=== PATIENT | male | born 1985 | race Caucasian/White ===

== ENCOUNTER 2018-05-28 07:05 | Outpatient (CLI) | payer MEDICAID, SELFPAY ==
--- NOTE | 2018-05-28 07:18 | DI.US_ITS ---
SYMPTOMS/DIAGNOSIS: EPIGASTRIC PAIN, SOME SEPARATION OF ABD MM SUPERIOR, ? LESION, ASSES ABD WALL ABDOMEN ULTRASOUND: There are no prior comparison exams. The liver is normal in size and echogenicity. The gallbladder is unremarkable, without evidence of stones or wall thickening. The common bile duct is mildly dilated at 6-7 mm. No common duct stones are seen. The pancreas was not well seen due to overlying bowel gas. The spleen is normal in size. The left kidney is also partially obscured by bowel gas. No ascites is seen. The abdominal wall was also scanned. No abdominal wall hernia, mass or fluid collection is seen. IMPRESSION: Borderline dilatation of the common bile duct. No gallstones or acute cholecystitis is seen. No abnormality of the abdominal wall is demonstrated.
== END 2018-05-28 07:25 ==
PROVIDERS: PCP Internal Medicine; Visit Provider Naturopath
DX: R10.13 Epigastric pain (principal); K83.8 Other specified diseases of biliary tract
CPT/HCPCS: 76700

== ENCOUNTER 2018-06-16 00:41 | Outpatient (CLI) | payer MEDICAID, SELFPAY ==
--- NOTE | 2018-06-16 12:54 | DI.CT_ITS ---
SYMPTOM/DIAGNOSIS: CHRONIC MAXILLARY SINUSITIS, J32.0, DENTIGEROUS CYST OF JAW, K09.[address]: There is opacification of the right frontal sinuses and multiple bilateral ethmoid sinuses. There is mucus retention cysts at the floors of both maxillary sinuses as well as circumferential mucosal thickening. There is mild mucosal thickening in the sphenoid sinuses. No dentigerous cysts are seen. The orbits are unremarkable. The mastoid air cells appear clear. There are no areas of bony destruction or expansion. IMPRESSION: Findings consistent with chronic hale sinusitis.
== END 2018-06-16 01:01 ==
PROVIDERS: PCP Internal Medicine; Visit Provider Otolaryngology Otolaryngology/Facial Plastic Surgery
DX: J32.0 Chronic maxillary sinusitis (principal); K09.0 Developmental odontogenic cysts; J32.4 Chronic pansinusitis
CPT/HCPCS: 70486

== ENCOUNTER 2019-02-04 09:33 | Emergency (ER) | payer MEDICAID, SELFPAY ==
[2019-02-04 09:35] VITALS: BP 132/81; PULSE 77; RESP 16; TEMP 36.7; O2SAT 99
--- NOTE | 2019-02-04 10:25 | ED.GENADUL_ITS ---
Discharge Plan Disposition Patient Disposition: HOME Condition: Good Discharge Details Chief Complaint: Laceration Clinical Impression: Wart Primary Care Provider: Kole Franco ED Provider: Kerri Plaza Home Meds and New Rx's Prescriptions: New mupirocin 2 % ointment 1 applic TP BID Qty: 30 RF: 0 cephalexin [Keflex] 500 mg capsule 500 mg PO QID Qty: 40 RF: 0 No Action dextroamphetamine-amphetamine [Adderall] 5 MG tablet 5 mg PO PRN PRNRF: 0 Discharge Instructions Instructions: Common Wart (ED) Additional Instructions: Wash area with soap and water once or twice daily. Use topical antibiotic ointment. Use oral antibiotic if desired Consider duct tape daily. Follow-up with is project manager for definitive removal. Return for any worsening or concerns sooner if needed Referrals: Ga Kent MD [ CONSULTING PHYSICIAN] - Medical Decision Making Patient with a wart noted on his fingers seeking definitive removal. Wart is been present for approximately 6 months. He is tried to cut it off himself s everal times. Patient has been using Compound W. Patient denies any other concerns or complaints. He does report soreness at the site. Complains of mild redness. No other concerns or complaints. I have referred this patient to local dermatology and encouraged conservative treatments. Did provide antibiotic as patient was concerned slightly with infection. He will consent to having the antibiotic by mouth however will likely only use the topical per his account. HPI General Date/Time Provider Initiated Documentation: 02/04/19 09:36 . HPI Narrative: Patient presents for a wart on his second digit. Patient reports it has been present for approximately 6 months. Patient reports he is quite bothered by it as it causes pain. Patient reports occasional drainage. He has tried to cut this off several times without relief. Patient seeking definitive removal. Related Data Home Medications Medication Instructions Recorded Confirmed dextroamphetamine-amphetamine 5 mg PO PRN PRN 03/26/13 02/04/19 [Adderall] cephalexin [Keflex] 500 mg PO QID #40 cap 02/04/19 mupirocin 1 applic TP BID #30 gm 02/04/19 Previous Rx's Medication Instructions Recorded cephalexin [Keflex] 500 mg PO QID #40 cap 02/04/19 mupirocin 1 applic TP BID #30 gm 02/04/19 Allergies Allergy/AdvReac Type Severity Reaction Status Date / Time No Known Allergies Allergy Unverified 02/04/19 09:40 General Stated Complaint: Laceration GRAY: 4 Review of Systems Review of Systems Narrative: CONSTITUTIONAL: The patient denies fevers, chills. EYES: Denies vision changes, blurry vision, or eye pain. ENT: Denies hearing changes, tinnitus, vertigo, sore throat. CARDIAC: Denies chest pain, SOB. RESPIRATORY: Denies cough, sputum. Denies difficulty breathing. GASTROINTESTINAL: Denies abdominal pain, changes in bowel, vomiting or nausea. GENITOURINARY: Denies dysuria, or frequency of urination. MUSCULOSKELETAL: Denies Joint pain, gait changes. NEUROLOGIC: Denies headaches, Denies focal weakness. Denies numbness. INTEGUMENT: Denies rashes. Wart PSYCHIATRIC: Denies behavior changes. Denies anxiety or depression. ENDOCRINOLOGY: Denies fatigue. PSYCHIATRY: Denies depression, agitation or anxiety ROS Unobtainable: All systems reviewed & are unremarkable except as noted in HPI and below PFSH Social History Smoking/Tobacco Use Status: Current-Occasional Drug use: Daily Substance use type: marijuana Do you feel safe at home: Yes Do you feel safe in your relationship?: Yes Exam Narrative Exam Narrative: CONST: Healthy appearing patient, in no acute distress. Well hydrated. Alert and alert. HENMT: Head nomocephalic, normal to inspection. Atraumatic. Hearing grossly normal. EYES: General normal appearance. Alignment normal. Eyelids normal. Conjunctiva normal. NECK: Normal visual inspection. FROM. Trachea midline. No Midline tenderness. RESP: Normal respiratory effort. Speaking full sentences. No cough. No audible wheezing. No retractions. CARDIO: No JVD. MUSCULOSKELETAL: Normal Gait. FROM of all extremities. SKIN: Normal. Dry. No rashes. Patient with a wart which seems chronic to the second digit laterally. Mild surrounding erythema. No purulence. NEURO: Alert and awake. Speech clear. PSYCH: Normal affect. Cooperative. Course Vital Signs Vital signs: Vital Signs Temperature 36.7 C 02/04/19 09:35 Pulse 77 02/04/19 09:35 Respiratory Rate 16 02/04/19 09:35 Blood Pressure 132/81 02/04/19 09:35 Pulse Oximetry 99 02/04/19 09:35 Temperature 36.7 C 02/04/19 09:35 Temperature Source Skin 02/04/19 09:35 Pulse 77 02/04/19 09:35 Respiratory Rate 16 02/04/19 09:35 Blood Pressure 132/81 02/04/19 09:35 Blood Pressure Position Sitting 02/04/19 09:35 Pulse Oximetry 99 02/04/19 09:35 Oxygen Delivery Method Room Air 02/04/19 09:35 Oxygen Flow Rate 0 02/04/19 09:35 Pain Level 10 02/04/19 09:35
== END 2019-02-04 10:38 | disposition home or self-care (01) ==
LOC: ER 10:33
PROVIDERS: Emergency Provider Physician Assistant; PCP Internal Medicine
DX: B07.8 Other viral warts (principal)
CPT/HCPCS: 99283

== ENCOUNTER 2019-07-30 02:15 | Outpatient (CLI) | payer MEDICAID, SELFPAY ==
--- NOTE | 2019-07-30 | DI.US_ITS ---
TECHNIQUE: Ultrasound abdomen performed using standard protocol. COMPARISON: US ABDOMEN from 05/28/2018 FINDINGS: LIVER: Normal. Hepatopedal flow in the Portal Vein. GALLBLADDER: No evidence of cholelithiasis. No evidence of wall thickening. No pericholecystic fluid identified. KIDNEYS: Kidneys are symmetric in size. No evidence of renal calculi. No evidence of hydronephrosis. No renal mass or cyst identified. BILIARY SYSTEM: Common bile duct measures 3 mm. No intrahepatic biliary ductal dilation. FLETCHER'S SIGN: Negative. PANCREAS: Normal where visualized. SPLEEN: Not enlarged. ABDOMINAL AORTA AND IVC: Visualized portions normal caliber. ASCITES: None seen. IMPRESSION: Normal sonographic appearance of the upper abdomen. DATA REPOSITORY:
== END 2019-07-30 02:35 ==
PROVIDERS: PCP Internal Medicine; Visit Provider Naturopath
DX: R10.11 Right upper quadrant pain (principal)
CPT/HCPCS: 76700

== ENCOUNTER 2022-09-27 07:36 | Emergency (ER) | payer MEDICAID, SELFPAY ==
[2022-09-27 07:40] VITALS: BP 140/82; PULSE 100; RESP 20; TEMP 37.1; O2SAT 99
--- NOTE | 2022-09-27 07:57 | ED.GENADUL_ITS ---
Discharge Plan Disposition Patient Disposition: Home Discharge Details Clinical Impression: Acute flank pain Primary Care Provider: Kole Franco ED Provider: Awais Caban Home Meds and New Rx's Prescriptions: No Action dextroamphetamine-amphetamine [Adderall] 5 MG tablet 5 mg PO PRN PRN mupirocin 2 % ointment 1 applic TP BID Qty: 30 0RF Patient Comments: Pt states not taking Rx Instructions: Pt states not taking cephalexin [Keflex] 500 mg capsule 500 mg PO QID Qty: 40 0RF Patient Comments: Pt states not taking Discharge Instructions Instructions: Flank Pain (ED) Additional Instructions: Your blood work and CAT scan did not reveal any abnormalities. You may take some Tylenol Motrin for the pain. Please return if you have any concerns. Follow-up with your primary care doctor as needed. Medical Decision Making 37-year-old presents to the emergency room with acute right-sided back pain, coccyx pain. States he went to bed feeling fine and woke up with the pain. No dysuria frequency no hematuria. Inspection of the lower back did not reveal any signs consistent with a abscess. No history of IVDA. CT scan of the abdomen pelvis did not reveal any abnormalities. Patient did not provide a urine sample for analysis. Patient walked up to the dictation desk stating that he wanted to be discharged, discussed the results of his CAT scan. HPI General Date/Time Provider Initiated Documentation: 09/27/22 07:56 . HPI Narrative: 37-year-old male presents to the emergency department after waking up with back pain on the right that radiates down to the pelvic area associated with coccyx pain. He states that he is very uncomfortable. States that he had some diarrhea this morning and some trace blood on the paper. He is very uncomfortable. No fever no chills. While in the emergency department he had an episode of diaphoresis. He denies any trauma. He had a normal day yesterday. Related Data Home Medications Medication Instructions Recorded Confirmed dextroamphetamine-amphetamine 5 mg 5 mg PO PRN PRN 03/26/13 09/27/22 tablet (Adderall) cephalexin 500 mg capsule (Keflex) 500 mg PO QID #40 caps 02/04/19 mupirocin 2 % topical ointment 1 applic topical BID #30 grams 02/04/19 Previous Rx's Medication Instructions Recorded cephalexin 500 mg capsule (Keflex) 500 mg PO QID #40 caps 02/04/19 mupirocin 2 % topical ointment 1 applic topical BID #30 grams 02/04/19 Allergies Allergy/AdvReac Type Severity Reaction Status Date / Time No Known Allergies Allergy Unverified 02/04/19 09:40 General Stated Complaint: FlankPain GRAY: 3 Review of Systems Narrative: 10 point review of systems is negative unless otherwise specified in the review of systems PFSH All Active Problems (Updated 09/27/22 @ 08:58 by Awais Caban MD) Acute flank pain (Acute) Allergic fungal sinusitis (Acute 05/17/13) Allergic rhinitis due to other allergen (Acute 03/04/16) Chronic ethmoidal sinusitis (Acute 04/12/13) Chronic frontal sinusitis (Acute 04/12/13) Chronic maxillary sinusitis (Acute 04/12/13) Nasal polyp (Acute 04/12/13) Social History Smoking/Tobacco Use Status: Current-Occasional Smoking risk assessment performed?: Yes Alcohol Intake: current Alcohol Intake frequency: 0-2 drinks per day Alcohol type: beer Drug use: Daily Substance use type: marijuana Do you feel safe at home: Yes Do you feel safe in your relationship?: Yes Exam Narrative Exam Narrative: General: A,A Ox3, Calm, no apparent distress, well developed, pleasant and cooperative Head Size/Shape: normocephalic, atraumatic Eyes Pupils: PERRLA Extraocular Mobility: intact and symmetrical Conjunctiva: non-injected, anicteric, no discharge Ears, Nose, Throat Nares: patent bilaterally Oral Cavity: moist Neck: no masses, no crepitus Lymph Nodes: no cervical lymphadenopathy Respiratory Respiratory Effort: no dyspnea Auscultation: clear to auscultation bilaterally, normal breath sounds, no wheezing, no rales/crackles Cardiovascular Heart Auscultation: regular rate and rhythm, normal S1, normal S2, no murmurs, no rubs, no gallops, Pulse Quality: +2 equal bilaterally, location(s) radial Abdomen Inspection and Palpation: soft, non-tender, non-distended, no hepatosplenomegaly Musculoskeletal System Joints, Bones, and Muscles: no deformities Extremities: warm and well-perfused, no cyanosis, capillary refill <2 seconds Skin Skin Inspection: no rash, no lesions, no bruising Neurological Motor: normal tone, normal strength, moving all extremities equally Reflexes: deep tendon reflexes 2+ bilaterally, no clonus Psychiatric: good insight, good judgement, normal mood and affect Course Vital Signs Vital signs: Vital Signs Temperature 37.1 C 09/27/22 07:40 Pulse 100 H 09/27/22 07:40 Respiratory Rate 20 09/27/22 07:40 Blood Pressure 140/82 09/27/22 07:40 Pulse Oximetry 99 09/27/22 07:40 Temperature 37.1 C 09/27/22 07:40 Temperature Source Oral 09/27/22 07:40 Pulse 100 H 09/27/22 07:40 Respiratory Rate 20 09/27/22 07:40 Respiratory Effort Normal, Non-Labored 09/27/22 07:44 Blood Pressure 140/82 09/27/22 07:40 Blood Pressure Position Sitting 09/27/22 07:40 Pulse Oximetry 99 09/27/22 07:40 Oxygen Delivery Method Room Air 09/27/22 07:40 Oxygen Flow Rate 0 09/27/22 07:40
--- NOTE | 2022-09-27 08:00 | DI.CT_ITS ---
Exam(s) CT ABDOMEN PELVIS W EXAM: CT ABDOMEN PELVIS W CLINICAL HISTORY: rt abd pain. TECHNIQUE: Imaging Protocol: Axial computed tomography images with coronal and sagittal reformatted images were created and reviewed CONTRAST MATERIAL: Intravenous: Omnipaque 350 Contrast volume:100 ml Oral: no COMPARISON: No exams were available for comparison FINDINGS: ABDOMEN: Lung Bases: Normal where visualized. Liver: Normal density. No measurable mass. Gallbladder and biliary tract: No radiodense calculus or dilation. Pancreas: Normal density, no abnormal calcifications or inflammatory process. Spleen: Normal. Kidneys: Normal size, contour and axis. No radiodense stones or obstructive uropathy. No suspicious m asses seen. Adrenal glands: No masses seen. Abdominal Aorta: Abdominal portion non-dilated. Soft tissues: Unremarkable. PELVIS: Bladder: Nearly empty. No calculi.No focal mass. Bowel: No obstruction. No bowel wall thickening. Appendix normal. Peritoneal cavity: No ascites, collection or mesenteric inflammatory response. Bones: Within normal limits for age. Reproductive organs: Within normal limits. Lymph nodes: Unremarkable. Impression: Unremarkable CT scan of the abdomen and pelvis. RADIATION DOSE DELIVERED: 838.38mGy.cm Total DLP DATA REPOSITORY: All CT scans at this facility are submitted to the National Radiology Data Registry (NRDR) Dose Index Registry (DIR) with the [employer] ([employer]). RADIATION OPTIMIZATION: All CT scans at this facility use at least one of these dose optimization te chniques: automated exposure control; mA and/or kV adjustment per patient size (includes targeted exa ms where dose is matched to clinical indication); or iterative reconstruction.
[2022-09-27] MEDS: Lactated Ringers 1,000 ML 1000 ML IV (08:14)
[2022-09-27 08:18] LABS: Abs Immature Grans 0.02 10^3/uL (0.0-0.06); Absolute Basophil Count 0.12 10^3/uL (0.0-0.2); Absolute Eosinophil Count 0.38 10^3/uL (0.0-0.7); Absolute Lymphocyte Count 1.95 10^3/uL (1.2-3.4); Absolute Monocyte Count 0.65 10^3/uL (0.1-0.8); Basophils % 1.3; Eosinophils % 4.3; HCT 45.9 % (40.0-50.0); HGB 15.8 g/dL (13.5-17.5); Immature Grans % 0.2; Lymphocytes % 21.9; MCH 32.2 pg (27.0-33.0); MCHC 34.4 % (32.0-36.0); MCV 94 fL (80-95); MPV 8.6 fL (8.0-11.0); Monocytes % 7.3; Platelet Count 348 10^3/uL (130-400); RDW 11.6 % (11.8-14.1); WBC 8.92 10^3/uL (4.4-10.8)
[2022-09-27] MEDS: Omnipaque 350 MG/ML 500 ML BTL-Imaging package IJ (08:25)
[2022-09-27 08:35] LABS: Anion Gap 7.9 mmol/L (3-11); BUN 13 mg/dL (7-18); CO2 26.1 mmol/L (21.0-32.0); Calcium 9.3 mg/dL (8.5-10.1); Chloride 106 mmol/L (98-107); Estimated GFR 98.18 (mL/min/1.73m2); Glucose 110 mg/dL (74-106); Potassium 4.2 mmol/L (3.5-5.1); Sodium 140 mmol/L (136-145)
[2022-09-27 09:01] VITALS: BP 130/82; PULSE 70; RESP 18; TEMP 36.8; O2SAT 99
== END 2022-09-27 14:19 | disposition home or self-care (01) ==
PROVIDERS: Emergency Provider Emergency Medicine; PCP Internal Medicine
DX: R10.9 Unspecified abdominal pain (principal)
CPT/HCPCS: 36415; 80048; 96361; 96374; 99285; 74177; 85025; 99284

== ENCOUNTER 2023-06-10 08:19 | Emergency (ER) | payer MEDICAID, SELFPAY ==
[2023-06-10 08:31] VITALS: BP 139/83; PULSE 77; RESP 18; TEMP 37.9; O2SAT 98
--- OUTSIDE RECORDS SUMMARY | 2023-06-10 09:07 | XMS_ITS | Continuity of Care Document ---
Author Name Unknown Organization [facility] Address [address] [place] [address] Care Team Providers Care Center Medical Specialist Name Role Phone Ryan Childers DO Primary Care Physician Encounter LTTL_OR FIN NBR [id number] Date(s): 11/21/22 - 11/21/22 [facility] [address] [place] [address]- Discharge Disposition: Home or Self Care Attending Physician: Donald Yeung MD Admitting Physician: Donald Yeung MD Allergies, Adverse Reactions, Alerts Substance Reaction Severity Status Indoor and Outdoor Allergies Unknown Unknown Active Assessment and Plan Future Appointments Future Scheduled Tests Laboratory* CBC w/ Diff 07/01/22 * Urinalysis with Micro if Indicated and Culture if Indicated 06/25/22 Functional Status 11/21/22 Family Member Travel History No recent t ravel Recent Travel History No recent travel Other exposure to Infectious Disease Non e Medications Advil 200 mg oral tablet Oral, every 6 hr, 0 Refill(s) Start Date: 03/01/22 Status: Ordered Flonase 50 mcg/inh nasal spray 2 sprays, Nasal, Daily, 2 puffs each nostril after sinus rinse, 0 Refill(s) Start Date: 03/01/22 Status: Ordered methylphenidate 5 mg oral tablet 5 mg = 1 tab, Oral, BID, # 60 tab, 0 Refill(s), Pharmacy: [id number] Start Date: 06/25/22 Status: Ordered Mental Status 11/21/22 Eye Opening Response [place] Spontaneous ly Best Verbal Response [place] Oriented Best Motor Response [place] Obeys comman ds Tran Coma Score 15 Problem List Condition Confirmation Course Effective Dates Status Health Status Informant Allergic rhinitis Confirmed Active Allergic rhinitis caused by mold Confirmed Active Attention deficit hyperactivity disorder, predominantly inattentive type Confirmed Active Cannabis dependence Confirmed Active Chronic ethmoidal sinusitis Confirmed Active Chronic maxillary sinusitis Confirmed Active Chronic pansinusitis Confirmed Active Dentigerous cyst Confirmed Active Disorder of the nose Confirmed Active Ear sensations - finding Confirmed Active Impairment of balance Confirmed Active Lesion of nose Confirmed Active Psychophysiologic disorder Confirmed Active Psychophysiologic insomnia Confirmed Active Smoker Confirmed Active Procedures Procedure Date Related Diagnosis Body Site Status FESS - functional endoscopic sinus surgery 1 Completed Nasal endoscopy with maxilla ry antrostomy 2 Completed Surgery 3 Completed Tonsillectomy 4 Completed -revision FESS -b/l maxillary antrostomy tiss. evac, b/l total ethmoid, R FR [facility] 3hand surgery -tonsillectomy and I&D palate mass Results Laboratory List Name Date Drug Screen Urine 11/21/22 Urinalysis with Micro if Indicated and C ulture if Indicated 11/21/22 Automated Diff 11/21/22 Acetaminophen Level 11/21/22 Alcohol Lvl 11/21/22 CBC w/ Diff 11/21/22 Comprehensive Metabolic Panel 11/21/22 Free T4 11/21/22 Salicylate Level 11/21/22 TSH w/ Rflx to Free T4 11/21/22 Most recent to oldest [Reference Range]: 1 WBC [4.8-10.8 K/mcL] 12.5 K/mcL *HI* (11/21/22 11:00 AM) RBC [4.20-6.10 Million/mcL] 4.93 Million /mcL (11/21/22 11:00 AM) Neutro Auto [42.2-75.2 %] 78.9 % *HI* (11/21/22 11:00 AM) Lymph Auto [20.5-51.1 %] 13.2 % *LOW* (11/21/22 11:00 AM) Mcduffie Auto [1.7-9.3 %] 5.9 % (11/21/22 11:00 AM) Basophil Auto [0.0-0.8 %] 0.8 % (11/21/22 11:00 AM) BUN [8-26 mg/dL] 11 mg/dL (11/21/22 11:00 AM) U Amph Scrn [Negative] Negative (11/21/22 11:30 AM) UA Color [Yellow] Yellow (11/21/22 11:30 AM) Glucose Level [74-106 mg/dL] 118 mg/dL *HI* (11/21/22 11:00 AM) Potassium Level [3.5-5.1 mmol/L] 4.1 mmo l/L (11/21/22 11:00 AM) Baso Absolute [0.0-0.2 K/mcL] 0.1 K/mcL (11/21/22 11:00 AM) U Benzodia Scrn [Negative] Negative (11/21/22 11:30 AM) MCV [80.0-94.0 fL] 95.3 fL *HI* (11/21/22 11:00 AM) UA Urobilinogen [0.2] 1.0 *ABN* (11/21/22 11 AM) T4 Free [0.61-1.12 ng/dL] 1.03 ng/dL (11/21/22 11:00 AM) UA Bili [Negative] Negative (11/21/22 11:30 AM) UA Ketones [Negative] Trace *ABN* (11/21/22 11 AM) AST [15-41 IntlUnit/L] 27 IntlUnit/L (11/21/22 11:00 AM) ALT [17-63 IntlUnit/L] 28 IntlUnit/L (11/21/22 11:00 AM) MCHC [32.0-36.0 g/dL] 34.0 g/dL (11/21/22 11:00 AM) Osmolality [275-295 mOsm/kg] 278 mOsm/kg (11/21/22 11:00 AM) Sodium Level [134-143 mmol/L] 139 mmol/L (11/21/22 11:00 AM) UA Leuk Est [Negative] Negative (11/21/22 11:30 AM) Lymph Absolute [1.2-3.4 K/mcL] 1.7 K/mcL (11/21/22 11:00 AM) UA Nitrite [Negative] Negative (11/21/22 1130 AM) UA Glucose [Negative] Negative (11/21/22 11:30 AM) Hct [42.0-52.0 %] 47.0 % (11/21/22 11:00 AM) U Cocaine Scrn [Negative] Positive *ABN* (11/21/22 11 AM) Calcium Level [8.9-10.3 mg/dL] 9.4 mg/dL (11/21/22 11:00 AM) Mcduffie Absolute [0.1-0.6 K/mcL] 0.7 K/mcL *HI* (11/21/22 11:00 AM) Albumin Level [3.5-5.0 g/dL] 4.2 g/dL (11/21/22 11:00 AM) Protein Total [6.5-8.1 g/dL] 7.3 g/dL (11/21/22 11:00 AM) UA Protein [Negative] Negative (11/21/22 11:30 AM) MCH [27.0-31.0 pg] 32.5 pg *HI* (11/21/22 11:00 AM) Neutro Absolute [1.4-6.5 K/mcL] 9.9 K/mc L *HI* (11/21/22 11:00 AM) Bilirubin Total [0.2-1.2 mg/dL] 0.9 mg/d L (11/21/22 11:00 AM) Hgb [14.0-18.0 g/dL] 16.0 g/dL (11/21/22 11:00 AM) Alk Phos [38-130 IntlUnit/L] 49 IntlUnit /L (11/21/22 11:00 AM) UA Blood [Negative] Negative (11/21/22 11:30 AM) MPV [7.4-10.4 fL] 9.3 fL (11/21/22 11:00 AM) Salicylate Level [<=30.0 mg/dL] <4.0 mg/ dL (11/21/22 11:00 AM) Ethanol Level [0.00-0.08 g/dL] See Comme nt g/dL 1 *NA* (11/21/22 11:00 AM) UA Spec Grav >=1.030 *NA* (11/21/22 11:30 AM) Platelets [130-400 K/mcL] 342 K/mcL (11/21/22 11:00 AM) CO2 [22-32 mmol/L] 26 mmol/L (11/21/22 11:00 AM) Eos Absolute [0.0-0.2 K/mcL] 0.1 K/mcL (11/21/22 11:00 AM) U Verónica Scrn [Negative] Negative (11/21/22 11:30 AM) TSH [0.45-5.33 mIntlUnit/mL] 0.39 mIntlU nit/mL *LOW* (11/21/22 11:00 AM) UA pH 5.00 *NA* (11/21/22 11:30 AM) U Opiate Scrn [Negative] Negative (11/21/22 11:30 AM) UA Appear [Clear] Clear (11/21/22 11:30 AM) Acetaminophen Level [10.0-30.0 ug/mL] <1 0.0 ug/mL 2 (11/21/22 11:00 AM) Chloride Level [98-111 mmol/L] 103 mmol/ L (11/21/22 11:00 AM) U Oxy Scrn [Negative] Negative (11/21/22 11:30 AM) U PCP Scrn [Negative] Negative (11/21/22 11:30 AM) RDW-CV [11.5-14.5 %] 11.6 % (11/21/22 11:00 AM) A/G Ratio 1.4 *NA* (11/21/22 11:00 AM) BUN/Creat Ratio [8.0-20.0] 11.6 (11/21/22 11:00 AM) Globulin 3.1 *NA* (11/21/22 11:00 AM) U THC Scr [Negative] Positive *ABN* (11/21/22 11:30 AM) U PPX Scr [Negative] Negative (11/21/22 11:30 AM) U Methadone Scr [Negative] Negative (11/21/22 11:30 AM) Imm Gran Absolute 0.04 *NA* (11/21/22 11:00 AM) Imm Gran Auto [0.0-0.5 %] 0.3 % (11/21/22 11:00 AM) Slide Review Not Indicated (11/21/22 11:00 AM) Urine Srce Clean Catch (11/21/22 11:30 AM) U Buprenorph Scr [Negative] Negative (11/21/22 11:30 AM) U mAMP Scr [Negative] Negative (11/21/22 11:30 AM) U TCA Scr [Negative] Negative (11/21/22 11:30 AM) Creatinine Level [0.61-1.24 mg/dL] 0.95 mg/dL (11/21/22 11:00 AM) Anion Gap [3.0-12.0] 10.0 (11/21/22 11:00 AM) Eos, Auto [0.00-3.00 %] 0.90 % (11/21/22 11:00 AM) Instr Ethanol Lvl [<=5 mg/dL] <5 mg/dL (11/21/22 11:00 AM) eGFR CKD-EPI [>=60 mL/min/1.73 m2] 104 m L/min/1.73 m2 (11/21/22 11:00 AM) 1Result Comment: Unable to report ETOH level due to measured ETOH being below instrument linearity. 2Interpretive Data: TOXIC: >150 ug/dL 4 HOURS AFTER INGESTION >75 ug/dL 8 HOURS AFTER INGESTION >40 ug/dL 12 HOURS AFTER INGESTION Vital Signs Most recent to oldest [Reference Range]: 1 Temperature Temporal Artery [36-38 Deg C ] 36.7 Deg C (11/21/22 10:43 AM) Peripheral Pulse Rate [60-100 bpm] 78 bp m (11/21/22 10:43 AM) Respiratory Rate [12-24 br/min] 20 br/mi n (11/21/22 10:43 AM) Blood Pressure [90-140/60-90 mmHg] 169/1 10mmHg *HI* (11/21/22 10:43 AM) Weight Dosing 85.70 kg (11/21/22 11:01 AM) Weight Estimated 85.70 kg (11/21/22 10:43 AM) Height/Length Dosing 178.000 cm (11/21/22 11:01 AM) Height/Length Estimated 178.000 cm (11/21/22 10:43 AM) Social History Social History Type Response Tobacco Former tobacco user Tobacco Use:. Sex Physician Emergency department Note * Leana Su APRN: PERFORM Event Display: ED Note Physician Authored Date: [id number] YOLI JOSEPH :1985 Age:37 years Sex:Male Visit Date:11/21/2022 Primary Care Physician: Ryan Childers, DO Basic Information Time Seen: Leana Su APRN / 11/21/2022 11:01 Chief Complaint Pt presents to ED accompanied by mom who states he wants to kill himself Pt denies SI to this RN states I just feel like shit but I won't do anything Pt tearful. Denies physical pain. Denies plan, denies attempt at self harm [employer] History Of Present Illness: Patient is a 37-year-old male who presents emergency department today with a chief complaint??depression. ??He states that he has had fluctuations??in mood??with periods of low over the last year??but states that he is normally??able to rebound well on his own and without intervention. ??He denies??ever being prescribed antidepressants or antianxiety medications.?? He denies any??acute or recent triggers that would cause feelings of hopelessness. ??He states that over the last month he has beenfeeling progressively lower??just not feeling??that feeling this way is worth living although he den ies being suicidal or homicidal. ??He denies any past history of suicidal??ideation or attempt. ??States he does not have a plan at this time.?? Family??report??the concern??was great enough to remove guns from the home. Review of Systems: General: Denies fever, chills, night sweats, unintentional weight changes, changes in appetite. Skin: Denies rashes, lesions, ulcerations, erythema, swelling, discoloration. HEENT: Denies headache, visual changes, changes in hearing, sore throat, hoarseness, difficulty swallowing, eye pain or drainage, ear pain or drainage, nasal discharge, enlarged lymph nodes, or neck tenderness. Resp: Denies cough, wheezing, shortness of breath, orthopnea, CV: Denies chest pain, chest pressure, palpitations, syncope, edema. GI: Denies nausea, vomiting, abdominal pain MS: Denies joint pain, joint swelling, muscle cramps, muscle weakness, stiffness Neuro: Denies weakness, paresthesias, seizures, tremors, dizziness. Physical Exam Vitals & Measurements T:??36.7?C ??(Temporal Artery)?? HR:??78??(Peripheral)?? RR:??20?? BP:??169/110?? SpO2:??98%?? HT:??178.000??cm?? WT:??85.70??kg??(Estimated)?? O2 Therapy:??Room air?? General: Well-appearing, no acute distress, alert and oriented x3. Skin: No concerning lesions in examined areas. Head: Normal cephalic without trauma or injury. Neck: Supple, nontender, normal range of motion Eye: Pupils reactive. ??Conjunctiva clear. Sclera nonicteric. ??No swelling, obvious foreign bodies. ??Extraocular movement intact. ??Oropharynx: Normal external, mucosal without mass, lesions, ulcerations. ??No erythema, exudate, lesions, uvula midline. Cardiovascular: Regular rate and rhythm. ??No murmur, rubs, or gallops. Respiratory: Clear to auscultation bilaterally. ??No wheezes, rales, rhonchi. Chest: No deformity. ??Nontender, normal inspiration and expiration. Abdomen: Soft, nontender. ??No peritoneal signs, rigidity, guarding. ??No CVA tenderness. Musculoskeletal: Normal range of motion the large joints without joint swelling. ??Gait normal. Medical Decision Making: Patient was evaluated for worsening depression and feeling of hopelessness,??psychiatric/mental health evaluation per protocol was initiated,??labs reflect slightly elevated with a white count of 12.5 ,??metabolic function is within normal limits,??TSH??normal, aspirin negative,??Tylenol negative, alcohol negative,??urine drug screen positive for THC and cocaine, urinalysis negative for infection.?? Mental health was initiated patient was evaluated. ??It was??found that the patient was safe to be discharged home with a safety plan, he was encouraged to reach out to the??crisis line??if needed.??He established a appointment with his primary care on Friday to discuss antidepressants, he will contact?? [facility] to establish??care with them. ??Spoke to the patient and his mother, he states that he will reach out to his mom if he continues to feel poorly, he understands that he can return at any time for further evaluation and treatment if he is to feel signs and symptoms of self-harm,??harm to others, worsening hopelessness??or any other concerns. Procedure No Qualifying Data Assessment/Plan Ordered: Consult to Mental Health, Routine, depression, Consult to [facility] Services Free T4, Blood, Stat, Collected, 11/21/22 11:00:00 EDT, Once, Nurse sherine, [phone] Medication Reconciliation Unchanged fluticasone nasal (Flonase 50 mcg/inh nasal spray)2 Sprays Nasal (into the nose) every day. 2 puffseach nostril after sinus rinse. ?? ibuprofen (Advil 200 mg oral tablet)Oral (given by mouth) every 6 hours. ?? methylphenidate (methylphenidate 5 mg oral tablet)1 tab Oral (given by mouth) 2 times a day. Refills: 0. 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 Substance Use Current, Marijuana- Comments: occasionally Tobacco Former tobacco user Tobacco Use:. Family History Alcoholism: Father. Hypertension: Father. Lab Results CBC and Differential?? LATEST RESULTS?? HISTORICAL RESULTS?? WBC?? 11/21/22 11:00?? 12.5 ??High?? 06/25/22?? 11.8 ??High?? RBC?? 11/21/22 11:00?? 4.93?? 06/25/22?? 4.79?? Hgb?? 11/21/22 11:00?? 16.0?? 06/25/22?? 15.3?? Hct?? 11/21/22 11:00?? 47.0?? 06/25/22?? 45.7?? MCV?? 11/21/22 11:00?? 95.3 ??High?? 06/25/22?? 95.4?? MCH?? 11/21/22 11:00?? 32.5 ??High?? 06/25/22?? 31.9 ??High?? MCHC?? 11/21/22 11:00?? 34.0?? 06/25/22?? 33.5?? RDW-CV?? 11/21/22 11:00?? 11.6?? 06/25/22?? 11.8?? Platelets?? 11/21/22 11:00?? 342?? 06/25/22?? 342?? MPV?? 11/21/22 11:00?? 9.3?? 06/25/22?? 8.7?? Neutro Auto?? 11/21/22 11:00?? 78.9 ??High?? 06/25/22?? 74.9?? Lymph Auto?? 11/21/22 11:00?? 13.2 ??Low?? 06/25/22?? 16.2 ??Low?? Mcduffie Auto?? 11/21/22 11:00?? 5.9?? 06/25/22?? 6.4?? Eos, Auto?? 11/21/22 11:00?? 0.90?? 06/25/22?? 1.50?? Basophil Auto?? 11/21/22 11:00?? 0.8?? 06/25/22?? 0.8?? Imm Gran Auto?? 11/21/22 11:00?? 0.3?? 06/25/22?? 0.2?? Neutro Absolute?? 11/21/22 11:00?? 9.9 ??High?? 06/25/22?? 8.9 ??High?? Lymph Absolute?? 11/21/22 11:00?? 1.7?? 06/25/22?? 1.9?? Mcduffie Absolute?? 11/21/22 11:00?? 0.7 ??High?? 06/25/22?? 0.8 ??High?? Eos Absolute?? 11/21/22 11:00?? 0.1?? 06/25/22?? 0.2?? Baso Absolute?? 11/21/22 11:00?? 0.1?? 06/25/22?? 0.1?? Imm Gran Absolute?? 11/21/22 11:00?? 0.04?? 06/25/22?? 0.02?? Slide Review?? 11/21/22 11:00?? Not Indicated?? 06/25/22?? Not Indicated? Routine Chemistry?? LATEST RESULTS?? HISTORICAL RESULTS?? Sodium Level?? 11/21/22 11:00?? 139?? 06/25/22?? 136?? Potassium Level?? 11/21/22 11:00?? 4.1?? 06/25/22?? 4.3?? Chloride Level?? 11/21/22 11:00?? 103?? 06/25/22?? 102?? CO2?? 11/21/22 11:00?? 26?? 06/25/22?? 23?? Alk Phos?? 11/21/22 11:00?? 49?? 06/25/22?? 45?? AST?? 11/21/22 11:00?? 27?? 06/25/22?? 20?? ALT?? 11/21/22 11:00?? 28?? 06/25/22?? 23?? BUN?? 11/21/22 11:00?? 11?? 06/25/22?? 16?? Glucose Level?? 11/21/22 11:00?? 118 ??High?? 06/25/22?? 98?? Creatinine Level?? 11/21/22 11:00?? 0.95?? 06/25/22?? 0.96?? BUN/Creat Ratio?? 11/21/22 11:00?? 11.6?? 06/25/22?? 16.7?? eGFR CKD-EPI?? 11/21/22 11:00?? 104?? 06/25/22?? 104?? Calcium Level?? 11/21/22 11:00?? 9.4?? 06/25/22?? 9.7?? Protein Total?? 11/21/22 11:00?? 7.3?? 06/25/22?? 7.4?? Albumin Level?? 11/21/22 11:00?? 4.2?? 06/25/22?? 4.4?? Globulin?? 11/21/22 11:00?? 3.1?? 06/25/22?? 3.0?? A/G Ratio?? 11/21/22 11:00?? 1.4?? 06/25/22?? 1.5?? Bilirubin Total?? 11/21/22 11:00?? 0.9?? 06/25/22?? 1.1?? Anion Gap?? 11/21/22 11:00?? 10.0?? 06/25/22?? 11.0?? Osmolality?? 11/21/22 11:00?? 278?? 06/25/22?? 273 ??Low? Thyroid Studies?? LATEST RESULTS?? TSH?? 11/21/22 11:00?? 0.39 ??Low? Serum Toxicology?? LATEST RESULTS?? Acetaminophen Level?? 11/21/22 11:00?? <10.0?? Salicylate Level?? 11/21/22 11:00?? <4.0?? Ethanol Level?? 11/21/22 11:00?? See Comment?? Instr Ethanol Lvl?? 11/21/22 11:00?? <5? Urine Toxicology?? LATEST RESULTS?? U Amph Scrn?? 11/21/22 11:30?? Negative?? U Verónica Scrn?? 11/21/22 11:30?? Negative?? U Benzodia Scrn?? 11/21/22 11:30?? Negative?? U Buprenorph Scr?? 11/21/22 11:30?? Negative?? U Cocaine Scrn?? 11/21/22 11:30?? Positive Abnormal?? U TCA Scr?? 11/21/22 11:30?? Negative?? U THC Scr?? 11/21/22 11:30?? Positive Abnormal?? U mAMP Scr?? 11/21/22 11:30?? Negative?? U Methadone Scr?? 11/21/22 11:30?? Negative?? U Opiate Scrn?? 11/21/22 11:30?? Negative?? U Oxy Scrn?? 11/21/22 11:30?? Negative?? U PCP Scrn?? 11/21/22 11:30?? Negative?? U PPX Scr?? 11/21/22 11:30?? Negative? UA Macroscopic?? LATEST RESULTS?? Urine Srce?? 11/21/22 11:30?? Clean Catch?? UA Color?? 11/21/22 11:30?? Yellow?? UA Appear?? 11/21/22 11:30?? Clear?? UA Glucose?? 11/21/22 11:30?? Negative?? UA Bili?? 11/21/22 11:30?? Negative?? UA Ketones?? 11/21/22 11:30?? Trace Abnormal?? UA Spec Grav?? 11/21/22 11:30?? >=1.030?? UA Blood?? 11/21/22 11:30?? Negative?? UA pH?? 11/21/22 11:30?? 5.00?? UA Protein?? 11/21/22 11:30?? Negative?? UA Urobilinogen?? 11/21/22 11:30?? 1.0 Abnormal?? UA Nitrite?? 11/21/22 11:30?? Negative?? UA Leuk Est?? 11/21/22 11:30?? Negative? Electronically Signed on 11/21/22 01:55 PM Leana Su APRN Patient Care team information Care Team Personnel Name: Ryan Childers DO Position: Physician Member Role: Primary Care Physician Address: Address: [address] [place] [address] [place] Name: Leana Su APRN Position: Physician Member Role: Physician Address: Address: [address] [place] [address] [place] Name: Dhara Kelly Position: Nurse Member Role: ED Nurse Care Team Related Persons Name: MITESH BERGERON Name: BELEN TILLEY Address: Home
--- OUTSIDE RECORDS SUMMARY | 2023-06-10 09:07 | XMS_ITS | Continuity of Care Document ---
Author Name Unknown Organization [facility] Address [address] [place] [address] Care Team Providers Care Dual Rate Dealer Name Role Phone Ryan Childers DO Primary Care Physician [phone] Encounter LTTL_ID FIN NBR [id number] Date(s): 05/13/23 - 05/13/23 [facility] [address] [place] [address]- Encounter Diagnosis Rectal bleed(Discharge Diagnosis) - 05/13/23 Hemorrhage of anus and rectum(Final) - Personal history of nicotine dependence(Final) - Discharge Disposition: Home or Self Care Attending Physician: Houston Rebollar MD Admitting Physician: Houston Rebollar MD Allergies, Adverse Reactions, Alerts Substance Reaction Severity Status Indoor and Outdoor Allergies Unknown Unknown Active Assessment and Plan Future Scheduled Tests Laboratory* CBC w/ Diff 07/01/22 * Urinalysis with Micro if Indicated and Culture if Indicated 06/25/22 Functional Status 05/13/23 Family Member Travel History No recent t ravel Recent Travel History No recent travel Other exposure to Infectious Disease Non e Immunizations Given and Recorded Vaccine Date Status Refusal Reason tetanus/diphth/pertuss (Tdap) adult/adol 10/06/14 Recorded Medications methylphenidate 5 mg oral tablet 5 mg = 1 tab, Oral, BID, # 60 tab, 0 Refill(s), Pharmacy: [id number] Start Date: 06/25/22 Status: Ordered sertraline 25 mg oral tablet 25 mg = 1 tab, Oral, Daily, # 90 tab, 0 Refill(s), Pharmacy: [id number], 178, cm, 11/21/22 11:01:00 EDT, Height/Length Dosing, 85.7, kg, 11/21/22 11:01:00 EDT, Weight Dosing Start Date: 11/25/22 Status: Ordered Mental Status 05/13/23 Eye Opening Response [place] Spontaneous ly Best Verbal Response [place] Oriented Best Motor Response Tran Obeys comman ds [place] Coma Score 15 Problem List Condition Confirmation [...] disorder Confirmed Active Psychophysiologic insomnia Confirmed Active Major depression, recurrent, chronic Confirmed Active Smoker Confirmed Active Procedures Procedure Date Related Diagnosis Body Site Status FESS - functional endoscopic sinus surgery 1 Completed Nasal endoscopy with maxilla ry antrostomy 2 Completed Surgery 3 Completed Tonsillectomy 4 Completed -revision FESS -b/l maxillary antrostomy tiss. evac, b/l total ethmoid, R FR [facility] 3hand surgery -tonsillectomy and I&D palate mass Results Laboratory List Name Date Automated Diff 05/13/23 CBC w/ Diff 05/13/23 Comprehensive Metabolic Panel (CMP) 04/19 11/08 PT/ INR 05/13/23 Sedimentation Rate (ESR) 05/13/23 Most recent to oldest [Reference Range]: 1 WBC [4.8-10.8 K/mcL] 9.5 K/mcL (05/13/23 2:35 PM) RBC [4.70-6.10 Million/mcL] 4.46 Million /mcL *LOW* (05/13/23 2:35 PM) Neutro Auto [42.2-75.2 %] 65.2 % (05/13/23 2:35 PM) Lymph Auto [20.5-51.1 %] 23.0 % (05/13/23 2:35 PM) Ferry Auto [1.7-9.3 %] 7.9 % (05/13/23 2:35 PM) Basophil Auto [0.0-0.8 %] 0.9 % *HI* (05/13/23 2:35 PM) Prothrombin Time [9.1-10.6 seconds] 9.2 seconds (05/13/23 2:35 PM) INR [0.9-1.1] 0.9 1 (05/13/23 2:35 PM) BUN [7-25 mg/dL] 15 mg/dL (05/13/23 2:35 PM) Glucose Level [70-109 mg/dL] 92 mg/dL (05/13/23 2:35 PM) Potassium Level [3.5-5.1 mmol/L] 4.1 mmo l/L (05/13/23 2:35 PM) Baso Absolute [0.0-0.2 K/mcL] 0.1 K/mcL (05/13/23 2:35 PM) MCV [80.0-94.0 fL] 96.3 fL *HI* (05/13/23 2:35 PM) AST [13-39 IntlUnit/L] 16 IntlUnit/L (05/13/23 2:35 PM) ALT [7-52 IntlUnit/L] 18 IntlUnit/L (05/13/23 2:35 PM) MCHC [32.0-37.0 g/dL] 33.8 g/dL (05/13/23 2:35 PM) Osmolality [275-295 mOsm/kg] 278 mOsm/kg (05/13/23 2:35 PM) Sodium Level [136-145 mmol/L] 139 mmol/L (05/13/23 2:35 PM) Lymph Absolute [1.2-3.4 K/mcL] 2.2 K/mcL (05/13/23 2:35 PM) Hct [42.0-52.0 %] 42.9 % (05/13/23 2:35 PM) Calcium Level [8.6-10.3 mg/dL] 9.4 mg/dL (05/13/23 2:35 PM) Ferry Absolute [0.1-0.6 K/mcL] 0.7 K/mcL *HI* (05/13/23 2:35 PM) Albumin Level [3.5-5.7 g/dL] 4.1 g/dL (05/13/23 2:35 PM) Protein Total [6.4-8.9 g/dL] 6.7 g/dL (05/13/23 2:35 PM) MCH [27.0-31.0 pg] 32.6 pg *HI* (05/13/23 2:35 PM) Neutro Absolute [1.4-6.5 K/mcL] 6.2 K/mc L (05/13/23 2:35 PM) Bilirubin Total [0.3-1.0 mg/dL] 0.4 mg/d L (05/13/23 2:35 PM) Hgb [14.0-18.0 g/dL] 14.5 g/dL (05/13/23 2:35 PM) Alk Phos [34-104 IntlUnit/L] 41 IntlUnit /L (05/13/23 2:35 PM) MPV [7.4-10.4 fL] 6.9 fL *LOW* (05/13/23 2:35 PM) Platelets [130-400 K/mcL] 332 K/mcL (05/13/23 2:35 PM) CO2 [21-31 mmol/L] 28 mmol/L (05/13/23 2:35 PM) Eos Absolute [0.0-0.2 K/mcL] 0.3 K/mcL *HI* (05/13/23 2:35 PM) Chloride Level [98-107 mmol/L] 106 mmol/ L (05/13/23 2:35 PM) RDW-CV [11.5-14.5 %] 12.4 % (05/13/23 2:35 PM) A/G Ratio [1.0-2.5 g/dL] 1.6 g/dL (05/13/23 2:35 PM) BUN/Creat Ratio [8.0-20.0] 13.6 (05/13/23 2:35 PM) Globulin [2.3-3.5 g/dL] 2.6 g/dL (05/13/23 2:35 PM) Slide Review Not Indicated (05/13/23 2:35 PM) Creatinine Level [0.70-1.30 mg/dL] 1.10 mg/dL (05/13/23 2:35 PM) Anion Gap [3.0-12.0] 5.0 (05/13/23 2:35 PM) Eos, Auto [0.00-3.00 %] 3.00 % (05/13/23 2:35 PM) eGFR CKD-EPI [>=60 mL/min/1.73 m2] 88 mL /min/1.73 m2 (05/13/23 2:35 PM) ESR, Westergren [0-15 mm/hr] 4 mm/hr (05/13/23 2:35 PM) 1Interpretive Data: THERAPEUTIC INR RANGES FOR WARFARIN Uncomplicated venous thromboembolic disease 2-3 Lupus Anticoagulant and recurrent thrombosis 3-3.5 Mechanical prosthetic valve or recurrent thrombosis 2.5-3.5 Radiology Reports * Exam Date Time Procedure Performing Provider Status 05/13/23 3:[address] Abdomen and Pelvi s w/ Contrast Yudith Travis; Auth (Verified) Notes: (CT Abdomen and Pelvis w/ Contrast) Reason For Exam: diffuse abdominal pain CT Abdomen and Pelvis w/ Contrast EXAM DESCRIPTION: CT Abdomen and Pelvis w/ Contrast 05/13/2023 INDICATION: DIFFUSE ABDOMINAL PAIN TECHNIQUE: All CT scans at this facility use at least one of these dose optimization techniques: Automated exposure control; mA and/or kV adjustment per patient size (includes targeted exams where dose is matched to clinical indication); or iterative reconstruction. Technique: Axial CT images of the abdomen/pelvis with IV contrast administration 100 cc of Isovue-300 contrast was utilized COMPARISON: None FINDINGS: No focal hepatic lesion. Normal enhancement of the main hepatic veins and main portal vein. Normal spleen size without focal mass Contracted gallbladder with no definite calcified gallstones Adrenal glands and pancreas appear within normal limits. No focal renal mass, hydronephrosis or perinephric fluid collection on either side Normal caliber abdominal aorta No retroperitoneal adenopathy in the abdomen or pelvis. No bowel dilatation to suggest obstruction or ileus. No free intraperitoneal air, ascites or inflammatory changes. Normal appendix. AP few scattered sigmoid diverticula are noted Small fat containing paraumbilical ventral abdominal hernia. Small fat containing left inguinal hernia. Small noncalcified nodular opacity in the anterior aspect of the right middle lobe on image number 9 measuring 4.5 mm in diameter. Tiny noncalcified pleural-based nodular opacity in the anterior aspect of the lingula on image number 18 measuring 2.8 mm. According to Fleischner society guidelines for management of incidentally detected pulmonary nodules, no follow-up would be required in the absence of risk factors. Visualized lung bases are otherwise clear No suspicious regional osseous lesions. IMPRESSION: Nonobstructive bowel pattern. No free air or inflammatory changes No abdominal/pelvic mass or adenopathy Additional nonacute findings as detailed above. JOB #: [id number] Final Signed by: Monty Falk MD Signed (Electronic Signature): 05/13/2023 3:34 pm Vital Signs Most recent to oldest [Reference Range]: 1 Temperature Temporal Artery [36-38 Deg C ] 36.4 Deg C (05/13/23 2:12 PM) Peripheral Pulse Rate [60-100 bpm] 80 bp m (05/13/23 2:12 PM) Respiratory Rate [12-24 br/min] 16 br/mi n (05/13/23 2:12 PM) Blood Pressure [90-140/60-90 mmHg] 160/9 4mmHg *HI* (05/13/23 2:12 PM) Mean Arterial Pressure, Cuff [70-110 mmH g] 116 mmHg *HI* (05/13/23 2:12 PM) Weight Estimated 83.91 kg (05/13/23 2:12 PM) Body Mass Index Estimated 26.54 kg/m2 (05/13/23 2:12 PM) Height/Length Estimated 177.80 cm (05/13/23 2:12 PM) Social History Social History Type Response Tobacco Former tobacco user Tobacco Use:. Sex Hospital Discharge Instructions Patient Education 05/13/2023 14:48:08 Gastrointestinal Bleeding Gastrointestinal Bleeding Gastrointestinal (GI) bleeding is bleeding somewhere along the digestive tract, between the mouth and the anus. The digestive tract includes the mouth, esophagus, stomach, small intestine, large intestine, and anus. The large intestine is often called the colon. GI bleeding can be caused by various problems. The severity of these problems can be mild, serious,or life-threatening. If you have GI bleeding, you may find blood in your stools (feces), you may have black stools, or you may vomit blood. You may need to stay in the hospital if there is a lot of bleeding. What are the causes? This condition may be caused by: ??? Inflammation, irritation, or swelling of the esophagus (esophagitis). The esophagus is part of the body that moves food from your mouth to your stomach. ??? Swollen veins in the rectum (hemorrhoids). ??? Tears in the anus (anal fissures). The tears are often caused by passing hard stool. ??? Pouches that form on the colon and may bleed (diverticulosis). ??? Inflammation in areas with diverticulosis. This is called diverticulitis.This can cause pain, fever, and bloody stools. ??? Growths (polyps) or cancer. Colon cancer often starts out as precancerous polyps. ??? Gastritis and ulcers. These may cause bleeding in the upper GI tract, near the stomach. What increases the risk? You are more likely to develop this condition if: ??? You have an infection in your stomach from a type of bacteria called Helicobacter pylori. ??? You take certain medicines, such as: ??? NSAIDs. ??? Aspirin. ??? Selective serotonin reuptake inhibitors (SSRIs). ??? Steroids. ??? Antiplatelet or anticoagulant medicines. ??? You smoke. ??? You drink alcohol. What are the signs or symptoms? Common symptoms of this condition include: ??? Bright red blood in your vomit, or vomit that looks like coffee grounds. ??? Bloody, black, or tarry stools. ??? Bleeding from the lower GI tract will usually cause red or maroon blood in the stools. ??? Bleeding from the upper GI tract may cause black, tarry stools that are often stronger smellingthan usual. ??? In certain cases, if the bleeding is fast enough, the stools may be red. ??? Pain or cramping in the abdomen. How is this diagnosed? This condition may be diagnosed based on: ??? Your medical history and a physical exam. ??? Various tests, such as: ??? Blood tests. ??? Stool tests. ??? X-rays and other imaging tests. ??? Esophagogastroduodenoscopy (EGD). In this test, a flexible, lighted tube is used to look at your esophagus, stomach, and small intestine. ??? Colonoscopy. In this test, a flexible, lighted tube is used to look at your colon. How is this treated? Treatment for this condition depends on the cause of the bleeding. For example: ??? For bleeding from the esophagus, stomach, small intestine, or colon, the health care provider may do a procedure to stop bleeding during your EGD or colonoscopy. ??? Inflammation or infection of the colon can be treated with medicines. ??? Certain rectal problems can be treated with creams, suppositories, or warm baths. ??? Medicines may be given to reduce acid in your stomach. ??? Surgery is sometimes done. ??? Blood transfusions are sometimes needed if a lot of blood has been lost. If there is a lot of bleeding, you will need to stay in the hospital for observation. If bleeding is mild, you may be allowed to go home. Follow these instructions at home: ??? Take xexc-yxi-wofpylp and prescription medicines only as told by your health care provider. ??? Eat foods that are high in fiber, such as beans, whole grains, and fresh fruits and vegetables.This will help to keep your stools soft. Eating 1???3 prunes each day works well for many people. ??? Drink enough fluid to keep your urine pale yellow. ??? Keep all follow-up visits. This is important. Contact a health care provider if: ??? Your symptoms do not improve with treatment. Get help right away if: ??? Your bleeding does not stop. ??? You feel light-headed or you faint. ??? You feel weak. ??? You have severe cramps in your back or abdomen. ??? You pass large blood clots in your stool. ??? Your symptoms are getting worse. ??? You have chest pain or fast heartbeats. These symptoms may be an emergency. Get help right away. Call 911. ??? Do not wait to see if the symptoms will go away. ??? Do not drive yourself to the hospital. Summary ??? Gastrointestinal (GI) bleeding is bleeding somewhere along the digestive tract, between the mouth and anus. GI bleeding can be caused by various problems. ??? Treatment for this condition depends on the cause of the bleeding. ??? Take vaec-dck-cjfcqer and prescription medicines only as told by your health care provider. ??? Get help right away if your bleeding increases, your symptoms are getting worse, or you have new symptoms. ??? Keep all follow-up visits. This is important. This information is not intended to replace advice given to you by your health care provider. Make sure you discuss any questions you have with your health care provider. Document Revised: 12/07/2021 Document Reviewed: 12/07/2021 Elsevier Patient Education ?? 2022 [email or web address]. Follow Up Care 05/13/2023 14:12:53 With:Reji Jane MD Address: [address] [place] [address]- When:5 to 7 days Comments:For further evaluation of rectal bleeding Physician Emergency department Note * Houston Rebollar MD: PERFORM Event Display: ED Note Physician Authored Date: [id number] YOLI JOSEPH :1985 Age:37 years Sex:Male Visit Date:05/13/2023 Primary Care Physician: Ryan Childers DO Basic Information Time Seen: Houston Rebollar MD / 05/13/2023 14:29 Chief Complaint Abd/back pain since Friday. Blood in vomit on Friday and blood in stool Friday. Pt has not had any pain meds today and is still having episodes of blood in stool. History Of Present Illness: Patient has been having some??epigastric discomfort and??lower back pain for the past 3 days. ??He states he had??vomiting??2 days ago and there was some blood streaks in it. ??He also has had several bowel movements??yesterday and today that had some blood. ??He states yesterday was much more blood and today it is??just speckles??of blood. ??He??still has some abdominal cramping. ??He denies??any loss of appetite and is able to eat and he states it does not cause any increased discomfort when he eats. ??Nuys any dysuria lightheadedness dizziness or other problems Review of Systems: Review of systems negative other than that stated above Physical Exam Vitals & Measurements T:??36.4?C ??(Temporal Artery)?? HR:??80??(Peripheral)?? RR:??16?? BP:??160/94?? SpO2:??99%?? HT:??177.80??cm?? WT:??83.91??kg??(Estimated)?? BMI:??26.54?? Pain Score:??6?? O2 Therapy:??Room air?? General: Alert and oriented, well nourished, no acute distress. Eye: PERRL, EOMI, normal conjunctiva. HENT: Normocephalic,??normal hearing, moist oral mucosa, no scleral icterus, . Neck: Supple, non-tender, no carotid bruits, no JVD, no lymphadenopathy. No rigidity Lungs: Clear to auscultation and percussion, non-labored respiration. Heart: Normal rate, regular rhythm, no murmur, gallop or edema. Abdomen: Soft, mild diffuse, non-distended, normal bowel sounds, no masses. Musculoskeletal: Normal range of motion and strength, no tenderness or swelling. Skin: Skin is warm, dry and appropriate for ethnicity, no rashes or lesions. Neurologic: Awake, alert and oriented X4, CN II-XII intact. Psychiatric: Cooperative, appropriate mood and affect. Procedure No Qualifying Data Reexamination/Reevaluation Patient remained hemodynamically stable here without any further bleeding. ??He is not anemic. ??I felt that patient can be discharged with gastroenterology follow-up and is recommended to see gastroenterology within the next week for??possible endoscopy.?? He will??return to ED for??the return of?? bleeding??or vomiting increased pain or other problems Assessment/Plan 1.??Rectal bleed??K62.5 Orders: Discharge Patient, 05/13/23 15:47:00 EST, Home Independently Patient Education Gastrointestinal Bleeding Follow Up With When Contact Information Reji Jane MD Within 5 to 7 days [address] [place] [address]- Additional Instructions: For further evaluation of rectal bleeding Medication Reconciliation Unchanged methylphenidate (methylphenidate 5 mg oral tablet)1 tab Oral (given by mouth) 2 times a day. Refills: 0. ?? sertraline (sertraline 25 mg oral tablet)1 tab Oral (given by mouth) every day. Refills: 0. 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, predominantly inattentive type Cannabis dependence Chronic ethmoidal sinusitis Chronic maxillary sinusitis Chronic pansinusitis Dentigerous cyst Disorder of the nose Ear sensations - finding Impairment of balance Lesion of nose Major depression, recurrent, chronic Psychophysiologic disorder Psychophysiologic insomnia Smoker Historical Pain in face Procedure/Surgical History ???FESS - functional endoscopic sinus surgery???Nasal endoscopy with maxillary antrostomy???Surgery???Tonsillectomy Medication Administration Given Sodium Chloride 0.9%, 1000 mL, Medication Bolus ondansetron, 4 mg, IV Push Allergies Indoor and Outdoor Allergies??(Unknown) Social History Alcohol Current, Beer, 1-2 times per week Electronic Cigarette/Vaping Electronic Cigarette Use: Never. 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 Home/Environment Lives with Significant other. Living situation: Home/Independent. Nutrition/Health Diet: Regular. Caffeine intake amount: 1 cup of coffee daily. Substance Use Current, Marijuana, Several times per day- Comments: occasionally Tobacco Former tobacco user Tobacco Use:. Family History Alcoholism: Father. Hypertension: Father. Diagnostic Results CT Abdomen and Pelvis w/ Contrast 05/13/2023 15:[address] Abdomen and Pelvis w/ Contrast ?? 05/13/23 15:34:46 EXAM DESCRIPTION: CT Abdomen and Pelvis w/ Contrast ?? 05/13/2023 ?? INDICATION: DIFFUSE ABDOMINAL PAIN ?? TECHNIQUE: All CT scans at this facility use at least one of these dose optimization techniques: Automated exposure control; mA and/or kV adjustment per patient size (includes targeted exams where dose is matched to clinical indication); or iterative reconstruction. ?? Technique: Axial CT images of the abdomen/pelvis with IV contrast administration ?? 100 cc of Isovue-300 contrast was utilized ?? COMPARISON: None ?? FINDINGS: No focal hepatic lesion. Normal enhancement of the main hepatic veins and main portal vein. ?? Normal spleen size without focal mass ?? Contracted gallbladder with no definite calcified gallstones ?? Adrenal glands and pancreas appear within normal limits. ?? No focal renal mass, hydronephrosis or perinephric fluid collection on either side ?? Normal caliber abdominal aorta ?? No retroperitoneal adenopathy in the abdomen or pelvis. ?? No bowel dilatation to suggest obstruction or ileus. No free intraperitoneal air, ascites or inflammatory changes. Normal appendix. AP few scattered sigmoid diverticula are noted ?? Small fat containing paraumbilical ventral abdominal hernia. Small fat containing left inguinal hernia. ?? Small noncalcified nodular opacity in the anterior aspect of the right middle lobe on image number 9 measuring 4.5 mm in diameter. Tiny noncalcified pleural-based nodular opacity in the anterior aspect of the lingula on image number 18 measuring 2.8 mm. According to Fleischner society guidelines for management of incidentally detected pulmonary nodules, no follow-up would be required in the absence of risk factors. Visualized lung bases are otherwise clear ?? No suspicious regional osseous lesions. ?? IMPRESSION: Nonobstructive bowel pattern. No free air or inflammatory changes ?? No abdominal/pelvic mass or adenopathy ?? Additional nonacute findings as detailed above. ? JOB #: [id number] Electronically Signed By: ?? Signed By: Monty Falk MD Diagnostic Study Interpretation: CT abdomen pelvis according to radiology is negative for any acute process Lab Results CBC and Differential?? LATEST RESULTS?? HISTORICAL RESULTS?? WBC?? 05/13/23 14:35?? 9.5?? 11/21/22?? 12.5 ??High?? RBC?? 05/13/23 14:35?? 4.46 ??Low?? 11/21/22?? 4.93?? Hgb?? 05/13/23 14:35?? 14.5?? 11/21/22?? 16.0?? Hct?? 05/13/23 14:35?? 42.9?? 11/21/22?? 47.0?? MCV?? 05/13/23 14:35?? 96.3 ??High?? 11/21/22?? 95.3 ??High?? MCH?? 05/13/23 14:35?? 32.6 ??High?? 11/21/22?? 32.5 ??High?? MCHC?? 05/13/23 14:35?? 33.8?? 11/21/22?? 34.0?? RDW-CV?? 05/13/23 14:35?? 12.4?? 11/21/22?? 11.6?? Platelets?? 05/13/23 14:35?? 332?? 11/21/22?? 342?? MPV?? 05/13/23 14:35?? 6.9 ??Low?? 11/21/22?? 9.3?? Neutro Auto?? 05/13/23 14:35?? 65.2?? 11/21/22?? 78.9 ??High?? Lymph Auto?? 05/13/23 14:35?? 23.0?? 11/21/22?? 13.2 ??Low?? Ferry Auto?? 05/13/23 14:35?? 7.9?? 11/21/22?? 5.9?? Eos, Auto?? 05/13/23 14:35?? 3.00?? 11/21/22?? 0.90?? Basophil Auto?? 05/13/23 14:35?? 0.9 ??High?? 11/21/22?? 0.8?? Neutro Absolute?? 05/13/23 14:35?? 6.2?? 11/21/22?? 9.9 ??High?? Lymph Absolute?? 05/13/23 14:35?? 2.2?? 11/21/22?? 1.7?? Ferry Absolute?? 05/13/23 14:35?? 0.7 ??High?? 11/21/22?? 0.7 ??High?? Eos Absolute?? 05/13/23 14:35?? 0.3 ??High?? 11/21/22?? 0.1?? Baso Absolute?? 05/13/23 14:35?? 0.1?? 11/21/22?? 0.1?? Slide Review?? 05/13/23 14:35?? Not Indicated?? 11/21/22?? Not Indicated? Miscellaneous Hematology?? LATEST RESULTS?? ESR, Westergren?? 05/13/23 14:35?? 4? Coagulation?? LATEST RESULTS?? Prothrombin Time?? 05/13/23 14:35?? 9.2?? INR?? 05/13/23 14:35?? 0.9? Routine Chemistry?? LATEST RESULTS?? HISTORICAL RESULTS?? Sodium Level?? 05/13/23 14:35?? 139?? 11/21/22?? 139?? Potassium Level?? 05/13/23 14:35?? 4.1?? 11/21/22?? 4.1?? Chloride Level?? 05/13/23 14:35?? 106?? 11/21/22?? 103?? CO2?? 05/13/23 14:35?? 28?? 11/21/22?? 26?? Alk Phos?? 05/13/23 14:35?? 41?? 11/21/22?? 49?? AST?? 05/13/23 14:35?? 16?? 11/21/22?? 27?? ALT?? 05/13/23 14:35?? 18?? 11/21/22?? 28?? BUN?? 05/13/23 14:35?? 15?? 11/21/22?? 11?? Glucose Level?? 05/13/23 14:35?? 92?? 11/21/22?? 118 ??High?? Creatinine Level?? 05/13/23 14:35?? 1.10?? 11/21/22?? 0.95?? BUN/Creat Ratio?? 05/13/23 14:35?? 13.6?? 11/21/22?? 11.6?? eGFR CKD-EPI?? 05/13/23 14:35?? 88?? 11/21/22?? 104?? Calcium Level?? 05/13/23 14:35?? 9.4?? 11/21/22?? 9.4?? Protein Total?? 05/13/23 14:35?? 6.7?? 11/21/22?? 7.3?? Albumin Level?? 05/13/23 14:35?? 4.1?? 11/21/22?? 4.2?? Globulin?? 05/13/23 14:35?? 2.6?? 11/21/22?? 3.1?? A/G Ratio?? 05/13/23 14:35?? 1.6?? 11/21/22?? 1.4?? Bilirubin Total?? 05/13/23 14:35?? 0.4?? 11/21/22?? 0.9?? Anion Gap?? 05/13/23 14:35?? 5.0?? 11/21/22?? 10.0?? Osmolality?? 05/13/23 14:35?? 278?? 11/21/22?? 278? Electronically Signed on 05/13/23 05:24 PM Houston Rebollar MD Emergency department Discharge instructions * Houston Rebollar MD: PERFORM Event Display: ED Discharge Information Authored Date: [id number] YOLI JOSEPH :1985 Age:37 years Sex:Male Visit Date:05/13/2023 Primary Care Physician: Ryan Childers, DO Discharge Instructions We would like to thank you for allowing us to assist you with your healthcare needs. The following includes patient education materials and information regarding your injury/illness. Diagnosis from Today's Visit Rectal bleed Discharge Vitals Temperature??(Temporal Artery) 97.5 ??F (36.4 ??C) Heart Rate??(Peripheral) 80 Respiratory Rate?? 16 Blood Pressure?? 160/94?? Height?? 70.00 in (177.80 cm) Weight??(Estimated) 185.02 lb (83.91 kg) BMI?? 26.54 Allergies Indoor and Outdoor Allergies??(Unknown) What to Do Next Instructions from Your Care Team Stay hydrated. ??Use Prilosec [id number]. ??Follow-up with Dr. Pike??from gastroenterology for further evaluation possible endoscopy. ??Return to ED for increased bleeding??or other problems You Need to Schedule the Following Appointments Follow Up with??Reji Jane MD When:??Within 5 to 7 days Why: For further evaluation of rectal bleeding Where: [address] [place] [id number]- You were treated today on an emergency basis; it may be virk to contact your primary care provider to notify them of your visit today. You may have been referred to your regular doctor or a specialist, please follow up as instructed. If your condition worsens or you can't get in to see the doctor, contact the Emergency Department. Medications What How Much When Why Instructions Next Dose Unchanged methylphenidate (methylphenidate 5 mg oral tablet) 1 tab Oral (given by mouth) 2 times a day Attention deficit hyperactivity disorder, predominantly inattentive type Unchanged sertraline (sertraline 25 mg oral tablet) 1 tab Oral (given by mouth) Every day Major depression, recurrent, chronic Education Materials Gastrointestinal Bleeding Gastrointestinal (GI) bleeding is bleeding somewhere along the digestive tract, between the mouth and the anus. The digestive tract includes the mouth, esophagus, stomach, small intestine, large intestine, and anus. The large intestine is often called the colon. GI bleeding can be caused by various problems. The severity of these problems can be mild, serious,or life-threatening. If you have GI bleeding, you may find blood in your stools (feces), you may have black stools, or you may vomit blood. You may need to stay in the hospital if there is a lot of bleeding. What are the causes? This condition may be caused by: ? Inflammation, irritation, or swelling of the esophagus (esophagitis). The esophagus is part of the body that moves food from your mouth to your stomach. ? Swollen veins in the rectum (hemorrhoids). ? Tears in the anus (anal fissures). The tears are often caused by passing hard stool. ? Pouches that form on the colon and may bleed (diverticulosis). ? Inflammation in areas with diverticulosis. This is called diverticulitis.This can cause pain, fever, and bloody stools. ? Growths (polyps) or cancer. Colon cancer often starts out as precancerous polyps. ? Gastritis and ulcers. These may cause bleeding in the upper GI tract, near the stomach. What increases the risk? You are more likely to develop this condition if: ? You have an infection in your stomach from a type of bacteria called Helicobacter pylori. ? You take certain medicines, such as: ? NSAIDs. ? Aspirin. ? Selective serotonin reuptake inhibitors (SSRIs). ? Steroids. ? Antiplatelet or anticoagulant medicines. ? You smoke. ? You drink alcohol. What are the signs or symptoms? Common symptoms of this condition include: ? Bright red blood in your vomit, or vomit that looks like coffee grounds. ? Bloody, black, or tarry stools. ? Bleeding from the lower GI tract will usually cause red or maroon blood in the stools. ? Bleeding from the upper GI tract may cause black, tarry stools that are often stronger smelling than usual. ? In certain cases, if the bleeding is fast enough, the stools may be red. ? Pain or cramping in the abdomen. How is this diagnosed? This condition may be diagnosed based on: ? Your medical history and a physical exam. ? Various tests, such as: ? Blood tests. ? Stool tests. ? X-rays and other imaging tests. ? Esophagogastroduodenoscopy (EGD). In this test, a flexible, lighted tube is used to look at your esophagus, stomach, and small intestine. ? Colonoscopy. In this test, a flexible, lighted tube is used to look at your colon. How is this treated? Treatment for this condition depends on the cause of the bleeding. For example: ? For bleeding from the esophagus, stomach, small intestine, or colon, the health care provider may do a procedure to stop bleeding during your EGD or colonoscopy. ? Inflammation or infection of the colon can be treated with medicines. ? Certain rectal problems can be treated with creams, suppositories, or warm baths. ? Medicines may be given to reduce acid in your stomach. ? Surgery is sometimes done. ? Blood transfusions are sometimes needed if a lot of blood has been lost. If there is a lot of bleeding, you will need to stay in the hospital for observation. If bleeding is mild, you may be allowed to go home. Follow these instructions at home: ? Take vngh-ste-ehwjdmn and prescription medicines only as told by your health care provider. ? Eat foods that are high in fiber, such as beans, whole grains, and fresh fruits and vegetables. This will help to keep your stools soft. Eating 1???3 prunes each day works well for many people. ? Drink enough fluid to keep your urine pale yellow. ? Keep all follow-up visits. This is important. Contact a health care provider if: ? Your symptoms do not improve with treatment. Get help right away if: ? Your bleeding does not stop. ? You feel light-headed or you faint. ? You feel weak. ? You have severe cramps in your back or abdomen. ? You pass large blood clots in your stool. ? Your symptoms are getting worse. ? You have chest pain or fast heartbeats. These symptoms may be an emergency. Get help right away. Call 911. ? Do not wait to see if the symptoms will go away. ? Do not drive yourself to the hospital. Summary ? Gastrointestinal (GI) bleeding is bleeding somewhere along the digestive tract, between the mouth and anus. GI bleeding can be caused by various problems. ? Treatment for this condition depends on the cause of the bleeding. ? Take uyml-mqi-cwlqgvi and prescription medicines only as told by your health care provider. ? Get help right away if your bleeding increases, your symptoms are getting worse, or you have new symptoms. ? Keep all follow-up visits. This is important. This information is not intended to replace advice given to you by your health care provider. Make sure you discuss any questions you have with your health care provider. Document Revised: 12/07/2021 Document Reviewed: 12/07/2021 [employer] Patient Education ?? 2022 [employer] Tests Performed Radiology CT Abdomen and Pelvis w/ Contrast 05/13/2023 15:37 EST Medications and Immunizations Administered Given Sodium Chloride 0.9%, 1000 mL, Medication Bolus ondansetron, 4 mg, IV Push Lab Test Name Test Result Date/Time WBC 9.5 K/mcL 05/13/2023 14:35 EST RBC 4.46 Million/mcL 05/13/2023 14:35 EST Hgb 14.5 g/dL 05/13/2023 14:35 EST Hct 42.9 % 05/13/2023 14:35 EST MCV 96.3 fL 05/13/2023 14:35 EST MCH 32.6 pg 05/13/2023 14:35 EST MCHC 33.8 g/dL 05/13/2023 14:35 EST RDW-CV 12.4 % 05/13/2023 14:35 EST Platelets 332 K/mcL 05/13/2023 14:35 EST MPV 6.9 fL 05/13/2023 14:35 EST Neutro Auto 65.2 % 05/13/2023 14:35 EST Lymph Auto 23.0 % 05/13/2023 14:35 EST Ferry Auto 7.9 % 05/13/2023 14:35 EST Eos, Auto 3.00 % 05/13/2023 14:35 EST Basophil Auto 0.9 % 05/13/2023 14:35 EST Neutro Absolute 6.2 K/mcL 05/13/2023 14:35 EST Lymph Absolute 2.2 K/mcL 05/13/2023 14:35 EST Ferry Absolute 0.7 K/mcL 05/13/2023 14:35 EST Eos Absolute 0.3 K/mcL 05/13/2023 14:35 EST Baso Absolute 0.1 K/mcL 05/13/2023 14:35 EST Slide Review Not Indicated 05/13/2023 14:35 EST ESR, Westergren 4 mm/hr 05/13/2023 14:35 EST Prothrombin Time 9.2 seconds 05/13/2023 14:35 EST INR 0.9 05/13/2023 14:35 EST Sodium Level 139 mmol/L 05/13/2023 14:35 EST Potassium Level 4.1 mmol/L 05/13/2023 14:35 EST Chloride Level 106 mmol/L 05/13/2023 14:35 EST CO2 28 mmol/L 05/13/2023 14:35 EST Alk Phos 41 IntlUnit/L 05/13/2023 14:35 EST AST 16 IntlUnit/L 05/13/2023 14:35 EST ALT 18 IntlUnit/L 05/13/2023 14:35 EST BUN 15 mg/dL 05/13/2023 14:35 EST Glucose Level 92 mg/dL 05/13/2023 14:35 EST Creatinine Level 1.10 mg/dL 05/13/2023 14:35 EST BUN/Creat Ratio 13.6 05/13/2023 14:35 EST eGFR CKD-EPI 88 mL/min/1.73 m2 05/13/2023 14:35 EST Calcium Level 9.4 mg/dL 05/13/2023 14:35 EST Protein Total 6.7 g/dL 05/13/2023 14:35 EST Albumin Level 4.1 g/dL 05/13/2023 14:35 EST Globulin 2.6 g/dL 05/13/2023 14:35 EST A/G Ratio 1.6 g/dL 05/13/2023 14:35 EST Bilirubin Total 0.4 mg/dL 05/13/2023 14:35 EST Anion Gap 5.0 05/13/2023 14:35 EST Osmolality 278 mOsm/kg 05/13/2023 14:35 EST Patient/Medical Officer Signature Patient Name:YOLI JOSEPH I have received this information and my questions have been answered. Patient/Medical Officer Name: Patient/Medical Officer Signature: Relationship to Patient: Witness Name/Signature: Date: Electronically Signed on: 05/13/2023 15:49 ESTSigned by:HANNY Patient Care team information Care Team Personnel Name: Ryan Childers DO Position: Physician Member Role: Primary Care Physician Address: Address: [address] [place], [place] [id number] [place] Name: Houston Rebollar MD Position: Physician Member Role: ED Physician Address: Address: [address] [place], [place] [id number] Name: Bairon Rangel Position: Nurse Member Role: ED Nurse Care Team Related Persons Name: MITESH BERGERON Name: BELEN TILLEY
--- OUTSIDE RECORDS SUMMARY | 2023-06-10 09:07 | XMS_ITS | Continuity of Care Document ---
Author Name Unknown Organization [facility] Ambulatory [facility] Address [address] [place] [address] Care Team Providers Care Training Program Developer Name Role Phone Ryan Childers DO Primary Care Physician [phone] Encounter [facility] NBR [id number] Date(s): 11/25/22 - 11/25/22 [facility] Ambulatory Clinics [address] [place], [place] [address] Encounter Diagnosis Major depression, recurrent, chronic(Discharge Diagnosis) - 11/25/22 Cocaine use(Discharge Diagnosis) - 11/25/22 Cannabis dependence(Discharge Diagnosis) - 11/25/22 Attention deficit hyperactivity disorder, predominantly inattentive type (Discharge Diagnosis) - 11/25/22 Major depressive disorder, recurrent, unspecified(Final) - Cocaine use, unspecified, uncomplicated(Final) - Cannabis dependence, uncomplicated(Final) - Attention-deficit hyperactivity disorder, predominantly inattentive type(Final) - Discharge Disposition: Home or Self Care Attending Physician: Kady Mccauley MD Referring Physician: Ryan Childers DO Allergies, Adverse Reactions, Alerts Substance Reaction Severity Status Indoor and Outdoor Allergies Unknown Unknown Active Assessment and Plan Future Appointments Future Scheduled Tests Laboratory* CBC w/ Diff 07/01/22 * Urinalysis with Micro if Indicated and Culture if Indicated 06/25/22 Functional Status 11/25/22 Other exposure to Infectious Disease Non e Immunizations Given and Recorded Vaccine Date Status Refusal Reason tetanus/diphth/pertuss (Tdap) adult/adol 10/06/14 Recorded Medications methylphenidate 5 mg oral tablet 5 mg = 1 tab, Oral, BID, # 60 tab, 0 Refill(s), Pharmacy: [id number] Start Date: 06/25/22 Status: Ordered sertraline 25 mg oral tablet 25 mg = 1 tab, Oral, Daily, # 90 tab, 0 Refill(s), Pharmacy: [id number], 178, cm, 11/21/22 11:01:00 EDT, Height/Length Dosing, 85.7, kg, 11/21/22 11:01:00 EDT, Weight Dosing Start Date: 11/25/22 Status: Ordered Problem List Condition Confirmation Course Effective Dates [...] 3hand surgery -tonsillectomy and I&D palate mass Vital Signs Most recent to oldest [Reference Range]: 1 Temperature Tympanic [36.6-37.9 Deg C] 3 6.2 Deg C *LOW* (11/25/22 9:14 AM) Peripheral Pulse Rate [60-100 bpm] 85 bp m (11/25/22 9:14 AM) Blood Pressure [90-140/60-90 mmHg] 110/8 0mmHg (11/25/22 9:14 AM) Weight 84.6 kg (11/25/22 9:14 AM) Weight Measured (lbs) 186.511 lb (11/25/22 9:14 AM) [place]clean Body Weight Calculated 71.551 kg (11/25/22 9:14 AM) Height 176.2 cm (11/25/22 9:14 AM) Height/Length Measured (inches) 69.37 in (11/25/22 9:14 AM) BSA Measured 2.03 m2 (11/25/22 9:14 AM) Body Mass Index 27.25 kg/m2 (11/25/22 9:14 AM) Social History Social History Type Response Tobacco Former tobacco user Tobacco Use:. Sex Hospital Discharge Instructions Follow Up Care 11/21/2022 13:39:07 With:Kady Mccauley MD Address: [address] [place] [phone] When:6 Weeks Comments:mood follow-up Physician Outpatient Note * Kady Mccauley MD: PERFORM Event Display: Office Clinic Note Physician Authored Date: [id number] JAKEYOLI PADILLA Sarah :1985 Age:37 years Sex:Male Visit Date:11/25/2022 Primary Care Physician: Ryan Childers DO Chief Complaint will talk to provider History of Present Illness Presents for ER follow-up. He is accompanied by his mother for the entire visit. States I guess I'm here to get a medication. Seen in ER 11/21 for worsening depression and his family's concerns about self- harm.??He was evaluated by psychiatry crisis services and was deemed safe for discharge home. In ER, [facility] was + for THC and cocaine, negative for any prescription controlled medications (he had discussed resuming methylphenidate at his prior visit 06/2022). He is diagnosed with ADD and difficulty sleeping, but has not hadprior treatment for depression or anxiety. Takes rare methylphenidate (only when he absolutely needs it). 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 He notes his sister has severe anxiety and tried 3 or 4 different meds before finding the currentone that is effective, possibly Zoloft per his recall. Review of Systems as per HPI Physical Exam Vitals & Measurements T:??36.2?C ??(Tympanic)?? HR:??85??(Peripheral)?? BP:??110/80?? SpO2:??97%?? HT:??176.2??cm?? WT:??84.6??kg?? BMI:??27.25?? BSA:??2.03?? Gen: well-appearing, in no acute distress CV: regular rate and rhythm Resp: normal respiratory effort Psych/MSE: attentive,??depressed mood, congruent affect, somewhat withdrawn but able to contract for safety and respond appropriately during visit Assessment/Plan 1.??Major depression, recurrent, chronic??F33.9 discussed treatment, including self-care measures, counseling, and medications discussed that SSRI treatment course is usually 6-9 months at a minimum and medication should be taken daily consistently and tapered when ready to discontinue start sertraline 25 mg daily, plan 6-week re-check for response (will continue, change dose, or change med) he declines counseling or psychiatry referral at this time Ordered: sertraline 25 mg oral tablet, 25 mg = 1 tab, Oral, Daily, # 90 tab, 0 Refill(s), Pharmacy: [id number], 178, cm, 11/21/22 11:01:00 EDT, Height/Length Dosing, 85.7, kg, 11/21/22 11:01:00 EDT, Weight Dosing ?? 2.??Cocaine use??F14.90 advised against cocaine use, particularly when taking stimulant medications ?? 3.??Cannabis dependence??F12.20 daily user to help with mood and sleep ?? 4.??Attention deficit hyperactivity disorder, predominantly inattentive type??F90.0 takes rare methylphenidate, only when I have to, last filled #60 pills in 06/2022 per PDMP, no refill given today ?? 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, predominantly inattentive type Cannabis dependence Chronic ethmoidal sinusitis Chronic maxillary sinusitis Chronic pansinusitis Dentigerous cyst Disorder of the nose Ear sensations - finding Impairment of balance Lesion of nose Major depression, recurrent, chronic Psychophysiologic disorder Psychophysiologic insomnia Smoker Procedure/Surgical History ???FESS - functional endoscopic sinus surgery???Nasal endoscopy with maxillary antrostomy???Surgery???Tonsillectomy Medications methylphenidate 5 mg oral tablet, 5 mg= 1 tab, Oral, BID sertraline 25 mg oral tablet, 25 mg= 1 tab, Oral, Daily Allergies Indoor and Outdoor Allergies??(Unknown) Social History Alcohol Never Electronic Cigarette/Vaping Electronic Cigarette Use: Never. 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 Home/Environment Lives with Significant other. Living situation: Home/Independent. Nutrition/Health Diet: Regular. Caffeine intake amount: 1 cup of coffee daily. Substance Use Current, Marijuana, Several times per day- Comments: occasionally Tobacco Former tobacco user Tobacco Use:. Family History Alcoholism: Father. Hypertension: Father. Immunizations Vaccine Date Status tetanus/diphth/pertuss (Tdap) adult/adol 10/06/2014 Recorded Electronically Signed on 11/25/22 09:52 AM Kady Mccauley MD Patient Care team information Care Team Personnel Name: Ryan Childers DO Position: Physician Member Role: Primary Care Physician Address: Address: [address] [place] [phone] [place] Care Team Related Persons Name: MITESH BERGERON Name: BELEN TILLEY Address: Home
--- OUTSIDE RECORDS SUMMARY | 2023-06-10 09:07 | XMS_ITS | Continuity of Care Document ---
Author Name Unknown Organization [facility] Address [address] [place] [id number] Care Team Providers Care Supply Chain Planner Name Role Phone Clyde KENT, Yuli Primary Care Physician Encounter [facility] NBR [id number] Date(s): 06/25/22 - 06/25/[address] [address]- Discharge Disposition: Home or Self Care Attending Physician: Yuli Tang MD Admitting Physician: Yuli Tang MD Referring Physician: Yuli Tang MD Allergies, Adverse Reactions, Alerts Substance Reaction Severity Status Indoor and Outdoor Allergies Unknown Unknown Active Assessment and Plan Future Scheduled Tests Laboratory* Urinalysis with Micro if Indicated and Culture if Indicated 06/25/22 Radiology* CT Abdomen and Pelvis w/o Contrast 06/25/22 Medications Advil 200 mg oral tablet Oral, every 6 hr, 0 Refill(s) Start Date: 03/01/22 Status: Ordered Flonase 50 mcg/inh nasal spray 2 sprays, Nasal, Daily, 2 puffs each nostril after sinus rinse, 0 Refill(s) Start Date: 03/01/22 Status: Ordered methylphenidate 5 mg oral tablet 5 mg = 1 tab, Oral, BID, # 60 tab, 0 Refill(s), Pharmacy: [id number] Start Date: 06/25/22 Status: Ordered Problem List Condition Confirmation Course [...] total ethmoid, R FR SMIRT 3hand surgery 403-tonsillectomy and I&D palate mass Results Laboratory List Name Date CBC w/ Diff 06/25/22 Comprehensive Metabolic Panel (CMP) Automated Diff 06/25/22 Most recent to oldest [Reference Range]: 1 WBC [4.8-10.8 K/mcL] 11.8 K/mcL *HI* (06/25/22 2:00 PM) RBC [4.20-6.10 Million/mcL] 4.79 Million /mcL (06/25/22 2:00 PM) Neutro Auto [42.2-75.2 %] 74.9 % (06/25/22 2:00 PM) Lymph Auto [20.5-51.1 %] 16.2 % *LOW* (06/25/22 2:00 PM) Teller Auto [1.7-9.3 %] 6.4 % (06/25/22 2:00 PM) Basophil Auto [0.0-0.8 %] 0.8 % (06/25/22 2:00 PM) BUN [8-26 mg/dL] 16 mg/dL (06/25/22 2:00 PM) Glucose Level [74-106 mg/dL] 98 mg/dL (06/25/22 2:00 PM) Potassium Level [3.5-5.1 mmol/L] 4.3 mmo l/L (06/25/22 2:00 PM) Baso Absolute [0.0-0.2 K/mcL] 0.1 K/mcL (06/25/22 2:00 PM) MCV [80.0-99.0 fL] 95.4 fL (06/25/22 2:00 PM) AST [15-41 IntlUnit/L] 20 IntlUnit/L (06/25/22 2:00 PM) ALT [17-63 IntlUnit/L] 23 IntlUnit/L (06/25/22 2:00 PM) MCHC [32.0-36.0 g/dL] 33.5 g/dL (06/25/22 2:00 PM) Osmolality [275-295 mOsm/kg] 273 mOsm/kg *LOW* (06/25/22 2:00 PM) Sodium Level [134-143 mmol/L] 136 mmol/L (06/25/22 2:00 PM) Lymph Absolute [1.2-3.4 K/mcL] 1.9 K/mcL (06/25/22 2:00 PM) Hct [37.0-52.0 %] 45.7 % (06/25/22 2:00 PM) Calcium Level [8.9-10.3 mg/dL] 9.7 mg/dL (06/25/22 2:00 PM) Teller Absolute [0.1-0.6 K/mcL] 0.8 K/mcL *HI* (06/25/22 2:00 PM) Albumin Level [3.5-5.0 g/dL] 4.4 g/dL (06/25/22 2:00 PM) Protein Total [6.5-8.1 g/dL] 7.4 g/dL (06/25/22 2:00 PM) MCH [27.0-31.0 pg] 31.9 pg *HI* (06/25/22 2:00 PM) Neutro Absolute [1.4-6.5 K/mcL] 8.9 K/mc L *HI* (06/25/22 2:00 PM) Bilirubin Total [0.2-1.2 mg/dL] 1.1 mg/d L (06/25/22 2:00 PM) Hgb [12.0-18.0 g/dL] 15.3 g/dL (06/25/22 2:00 PM) Alk Phos [38-130 IntlUnit/L] 45 IntlUnit /L (06/25/22 2:00 PM) MPV [7.4-10.4 fL] 8.7 fL (06/25/22 2:00 PM) Platelets [130-400 K/mcL] 342 K/mcL (06/25/22 2:00 PM) CO2 [22-32 mmol/L] 23 mmol/L (06/25/22 2:00 PM) Eos Absolute [0.0-0.2 K/mcL] 0.2 K/mcL (06/25/22 2:00 PM) Chloride Level [98-111 mmol/L] 102 mmol/ L (06/25/22 2:00 PM) RDW-CV [11.5-14.5 %] 11.8 % (06/25/22 2:00 PM) A/G Ratio 1.5 *NA* (06/25/22 2:00 PM) BUN/Creat Ratio [8.0-20.0] 16.7 (06/25/22 2:00 PM) Globulin 3.0 *NA* (06/25/22 2:00 PM) Imm Gran Absolute 0.02 *NA* (06/25/22 2:00 PM) Imm Gran Auto [0.0-0.5 %] 0.2 % (06/25/22 2:00 PM) Creatinine Level [0.61-1.24 mg/dL] 0.96 mg/dL (06/25/22 2:00 PM) Anion Gap [3.0-12.0] 11.0 (06/25/22 2:00 PM) Eos, Auto [0.00-3.00 %] 1.50 % (06/25/22 2:00 PM) eGFR CKD-EPI [>=60 mL/min/1.73 m2] 104 m L/min/1.73 m2 (06/25/22 2:00 PM) Social History Social History Type Response Tobacco Former tobacco user Tobacco Use:. Sex Patient Care team information Personnel Name: Yuli Tang MD Address: Address: [address] [place] [address]
--- OUTSIDE RECORDS SUMMARY | 2023-06-10 09:07 | XMS_ITS | Continuity of Care Document ---
Author Name Unknown Organization [facility] Ambulatory Clinics Address [address] [place] [address] Care Team Providers Care Illusionist Name Role Phone Clyde KENT, Yuli Primary Care Physician [phone] Encounter [facility] NBR [id number] Date(s): 06/25/22 - 06/25/22 [facility] Ambulatory Clinics [address] [place], [place] [address] Encounter Diagnosis Attention deficit hyperactivity disorder, predominantly inattentive type (Discharge Diagnosis) - 06/25/22 Right flank pain(Discharge Diagnosis) - 06/25/22 Cannabis dependence(Discharge Diagnosis) - 06/25/22 Discharge Disposition: Home or Self Care Attending Physician: Yuli Tang MD Allergies, Adverse Reactions, Alerts Substance Reaction Severity Status Indoor and Outdoor Allergies Unknown Unknown Active Assessment and Plan Future Scheduled Tests Laboratory* Urinalysis with Micro if Indicated and Culture if Indicated 06/25/22 Radiology* CT Abdomen and Pelvis w/o Contrast 06/25/22 Functional Status 06/25/22 Other exposure to Infectious Disease Non e [...] BID, # 60 tab, 0 Refill(s), Pharmacy: [id number] Start Date: 06/25/22 Status: Ordered Problem [...] 3hand surgery 403-tonsillectomy and I&D palate mass Vital Signs Most recent to oldest [Reference Range]: 1 Peripheral Pulse Rate [60-100 bpm] 99 bp m (06/25/22 1:11 PM) Blood Pressure [90-140/60-90 mmHg] 114/8 0mmHg (06/25/22 1:11 PM) Weight 85.7 kg (06/25/22 1:11 PM) Weight Measured (lbs) 188.936 lb (06/25/22 1:11 PM) [place] Body Weight Calculated 70.7 kg (06/25/22 1:11 PM) Height 175.26 cm (06/25/22 1:11 PM) Height/Length Measured (inches) 69 inch (06/25/22 1:11 PM) BSA Measured 2.04 m2 (06/25/22 1:11 PM) Body Mass Index 27.9 kg/m2 (06/25/22 1:11 PM) Social History Social History Type Response Tobacco Former tobacco user Tobacco Use:. Sex Patient Care team information Personnel Name: Yuli Tang MD Address: Address: [address] [place] [address]
--- NOTE | 2023-06-10 09:17 | W.ED.GENAD ---
HPI General Date/Time Provider Initiated Documentation: 06/10/23 08:40. HPI Narrative: 37 year-old male presents to ED today by POV/ambulating with a chief complaint of generalized cough & cold symptoms with onset Friday, day 3-4. Quality described as body aches, cough, headache, stuffy nose, no radiation to chest pain, profound lethargy, nausea/vomiting, endorses he is tolerating PO. Severity is described as severe. Palliating factors include nothing attempted- has not taken any Tylenol, ibuprofen, or OTC cold medicines. Provoking factors include nothing specific. Events leading up to the incident/Associated Symptoms: patient is requesting work note and Covid-19 test. Patient not anticoagulated. Related Data Home Medications Medication Instructions Recorded Confirmed methylphenidate HCl 5 mg tablet 5 mg PO DAILY 06/10/23 06/10/23 Allergies Allergy/AdvReac Type Severity Reaction Status Date / Time No Known Allergies Allergy Unverified 06/10/23 08:33 General Stated Complaint: RespSymp GRAY: 4 Review of Systems All systems reviewed & are unremarkable except as noted in HPI and below Exam Narrative Exam Narrative: GENERAL APPEARANCE: Well-nourished, non-toxic, awake and alert, atraumatic, no acute distress. SKIN: Warm, pink, dry, intact, without rashes/lesions/ulcerations. HEAD: Normocephalic, atraumatic, normal hair distribution for gender/age. EYES: Pupils PERRLA, EOMs intact without nystagmus, normal conjunctiva, no exudates on lids/lashes. ENT: Nares patent, no circumoral cyanosis, no facial swelling NECK: Supple, trachea midline, painless cervical ROM. LUNGS/CHEST: Lungs CTA bilaterally- no rhonchi/rales/wheezes diffusely, non-labored respirations, normal A/P diameter, symmetrical expansion, no chest wall deformity HEART (CV/PV): Regular rate and rhythm without murmur, no peripheral edema, no JVD. ABDOMEN: Soft, non-distended, no guarding. MSK: Normal ROM, no swelling/deformity to bilateral UEs or LEs, moving all extremities without weakness, no cyanosis, spine midline without tenderness, normal curvature. NEURO: Mental Status AAOx4 - alert to person, place, time, events No facial droop, no forehead involvement. Motor: No focal weakness - strength 5/5 in bilateral UEs and LEs, proximal and distal, symmetric. Sensory: sensation intact to light touch globally. Gait normal: patient ambulated without ataxia into ED room. PSYCH: euthymic, cooperative, pleasant, appropriate speech Course Vital Signs Vital signs: Vital Signs Temperature 37.9 C H 06/10/23 08:31 Pulse 77 06/10/23 08:31 Respiratory Rate 18 06/10/23 08:31 Blood Pressure 139/83 06/10/23 08:31 Pulse Oximetry 98 06/10/23 08:31 Temperature 37.9 C H 06/10/23 08:31 Temperature Source Skin 06/10/23 08:31 Pulse 77 06/10/23 08:31 Respiratory Rate 18 06/10/23 08:31 Respiratory Effort Normal, Non-Labored 06/10/23 09:10 Respiratory Depth Normal 06/10/23 09:10 Blood Pressure 139/83 06/10/23 08:31 Blood Pressure Position Sitting 06/10/23 08:31 Pulse Oximetry 98 06/10/23 08:31 Oxygen Delivery Method Room Air 06/10/23 08:31 Oxygen Flow Rate 0 06/10/23 08:31 Medical Decision Making This dictation utilizes [id number] dictation software and may contain unedited grammatical errors. 37 y/o M presents to ED today with a chief complaint of generalized cold symptoms for 3 days, body aches but hasn't taken any medicines for cold/flu symptoms. Patient requesting work note and Covid-19 test. Patients' medical history: chronic sinusitis, allergic rhinitis. Family and social history: noncontributory. Pertinent exam findings / vital signs include lungs CTA, neuro intact, nontoxic. Differential / pathologies of concern include benign URI, unlikely PNA, Not strep. Diagnostic studies of: -POC Covid/Flu Ag - negative to both. Interventions of: -none. ED Course/Assessment/Plan: 37-year-old male presents with 3 days of an upper respiratory infection, has taken no medications to try and improve his situation, requesting COVID test which was negative for COVID and flu on rapid antigen, counseled on therapeutic dosing of Tylenol and ibuprofen or other [id number] cold medicines provided work note for couple days off of work. Findings not consistent with respiratory distress, toxic presentation. Disposition of upper respiratory infection. Patient verbalized understanding of the plan and return to ED criteria and engaged in shared decision making. Medical Records Medical records reviewed: Yes I reviewed the patient's medical records. Lab Data Lab results reviewed: Yes I reviewed the patient's lab results. Labs: POC Covid & Flu Ag negative Quality:SDOH Health Related Social Needs: No Data to Display PFSH All Active Problems (Updated 06/10/23 @ 09:21 by LANETTE Valente) Upper respiratory infection (Acute) Allergic fungal sinusitis (Acute 05/17/13) Allergic rhinitis due to other allergen (Acute 03/04/16) Chronic ethmoidal sinusitis (Acute 04/12/13) Chronic frontal sinusitis (Acute 04/12/13) Chronic maxillary sinusitis (Acute 04/12/13) Nasal polyp (Acute 04/12/13) Social History Smoking/Tobacco Use Status: Current-Occasional Smoking risk assessment performed?: Yes Alcohol Intake: current Alcohol Intake frequency: 0-2 drinks per day Alcohol type: beer Drug use: Daily Substance use type: marijuana Do you feel safe at home: Yes Do you feel safe in your relationship?: Yes Discharge Plan Disposition Patient Disposition: Home Discharge Details Clinical Impression: Upper respiratory infection Primary Care Provider: Kole Franco ED Provider: Clif Garcia Home Meds and New Rx's Prescriptions: Continued methylphenidate HCl 5 mg tablet 5 mg PO DAILY Patient Comments: TAKE ONE TABLET BY MOUTH TWO TIMES A DAY MAXIMUM DAILY DOSE = TWO TABLETS Discharge Instructions Instructions: Upper Respiratory Infection (ED) Additional Instructions: You were seen in the emergency department for your general viral syndrome since Friday. Takes most viruses is to resolve, your COVID and flu swab is negative. Your lungs are clear to auscultation. Please use therapeutic dosing of Tylenol (acetamenophen) & Advil (ibuprofen) in an alternating fashion as follows: Take 1000mg of Tylenol every 6 hours without missing doses- that is 4 times per day. [place] in between the Tylenol dosings, take 400-600mg of Advil also on a 6 hour schedule, that is also 4 times per day. The daily maximum dosing of Tylenol is 4000mg, and the daily maximum dosing of Advil is 2400mg. This is safe to do for weeks. Please note that some common cold medications & prescription pain medications may contain acetamenophen and you need to read OTC drug labels and factor that in to maximum daily dosings. Please return to the ED for any respiratory distress. Stand Alone Forms: Work Release Referrals: Kole Franco [Primary Care Provider] -
== END 2023-06-10 09:28 | disposition home or self-care (01) ==
PROVIDERS: Emergency Provider Physician Assistant; PCP Internal Medicine
DX: J06.9 Acute upper respiratory infection, unspecified (principal); F17.200 Nicotine dependence, unspecified, uncomplicated
CPT/HCPCS: 87426; 99283

== ENCOUNTER 2023-11-07 01:53 | Outpatient (CLI) | payer MEDICAID, SELFPAY ==
[2023-11-07] MEDS: Levalbuterol HFA 15 GM INH 4 PUFF IH (08:57)
[2023-11-07] MEDS: Inhaler, Assist Device 1 EACH MC (08:57)
--- NOTE | 2023-11-24 14:56 | W.PFT ---
Date of service: 11/07/23 Time of Service: 08:02 Pulmonary Function Test Result Requesting Provider Yumiko Garcia Indications: ZAVALA, lung nodule Interpretation Spirometry: Mild decrease in FEV1/FVC but normal FEV1 and FVC Lung Volumes: Normal Diffusion Capacity: Normal Impression Mild obstructive ventilatory defect w/ no reversibility after albuterol. Normal lung volumes and normal diffusion. Flow volume curve suggests mild obstruciton. Clinical Correlation therefore is recommended.
== END 2023-11-07 01:54 | disposition home or self-care (01) ==
LOC: RT 01:53
PROVIDERS: PCP Registered Nurse; Visit Provider Physician Assistant Surgical
DX: R91.1 Solitary pulmonary nodule (principal); F17.200 Nicotine dependence, unspecified, uncomplicated
CPT/HCPCS: 00123; 94060; 94726; 94729

== ENCOUNTER → 2023-11-18 02:34 | Outpatient (CLI) | payer MEDICAID, SELFPAY ==
--- NOTE | 2023-11-18 06:30 | DI.CT_ITS ---
Exam(s) CT CHEST WO EXAM: CT CHEST WO CLINICAL HISTORY: ? sarcoid, lung nodule,r22.9,r91.1. TECHNIQUE: Multi planar reconstructions were performed. CONTRAST MATERIAL: None COMPARISON: CT CT ABD/PELVIS W CONTRAST from 05/13/2023 FINDINGS: CHEST: LUNGS: There are no significant focal left lung findings. In the right lung there is a 2 millimeter nodule in the right upper lobe (series 2/image 25). Also another possible 2 millimeter nodule just b elow this (series 2/image 26). There are no confluent infiltrates in either lung and there are no pl eural effusions. No findings in the trachea and mainstem bronchi and there is no bronchiectasis. MEDIASTINUM: There is no obvious hilar nor mediastinal adenopathy. No supraclavicular adenopathy. No axillary adenopathy.Visualized thyroid appears unremarkable. CARDIAC: Heart size is normal. There is no pericardial effusion.Caliber of the thoracic aorta is wit hin normal limits. VISUALIZED UPPER ABDOMEN:No adrenal masses. No splenomegaly. OSSEOUS: No fractures. No significant osseous lesions.. IMPRESSION: 1. There are 2 small benign-appearing 2 millimeter nodules in the right upper lobe. 2. No interstitial disease evident and no hilar nor mediastinal adenopathy, given the history here. 3. Recommend repeat chest CT scan in 1 year, earlier if clinically indicated. RADIATION DOSE DELIVERED: 540.11mGy.cm Total DLP DATA REPOSITORY: All CT scans at this facility are submitted to the National Radiology Data Registry (NRDR) Dose Index Registry (DIR) with the [employer] (A[employer]). RADIATION OPTIMIZATION: All CT scans at this facility use at least one of these dose optimization te chniques: automated exposure control; mA and/or kV adjustment per patient size (includes targeted exa ms where dose is matched to clinical indication); or iterative reconstruction.
== END ==
PROVIDERS: PCP Registered Nurse; Visit Provider Physician Assistant Surgical
DX: R91.1 Solitary pulmonary nodule
CPT/HCPCS: 71250